=== PATIENT | female | born 1985 | race Caucasian/White ===

== ENCOUNTER 2022-09-03 14:09 | Emergency (ER) | payer OTHER, SELFPAY ==
[2022-09-03 14:29] VITALS: BP 109/66; PULSE 93; RESP 16; TEMP 36.6; O2SAT 100
--- NOTE | 2022-09-03 15:36 | ED.EAR ---
HPI - Ear Problem General Chief complaint: Ear Stated complaint: ear pain Time Seen by Provider: 09/03/22 15:25 History of Present Illness HPI Narrative: 37-year-old female presents emergency room for evaluation of bilateral ear pain. States 10 to 14 days ago was experiencing URI symptoms, sinus congestion postnasal drip or cough. States that those have resolved. 3 days ago began experiencing pain in her right ear and muffled hearing denies any drainage. Review of Systems Review of Systems: CONSTITUTIONAL: Denies fever, chills, or sweats. EYES: Denies visual changes, redness, or discharge. ENT: Bilateral ear pain CARDIOVASCULAR: Denies chest pain, palpitations, or edema. RESPIRATORY: Denies cough or dyspnea. GASTROINTESTINAL: Denies abdominal pain, nausea, vomiting, or diarrhea. GENITOURINARY: Denies dysuria or hematuria. SKIN: Denies rash or itching. MUSCULOSKELETAL: Denies back pain, joint pain, or myalgia. NEUROLOGIC: Denies headache, numbness, dizziness, or weakness. PSYCHIATRIC: Denies anxiety or depression. Exam Narrative: GENERAL: Well-appearing, well-nourished, no physical limitations, and in no acute distress. HEAD: Normocephalic, atraumatic. EYES: Conjunctivae normal, PERRLA and EOMI. ENT: External nose normal, Nares clear, no rhinorrhea or epistaxis. Mucous membranes moist. Oropharynx without tonsillar hypertrophy exudate or other lesions. External ears normal, bilateral TMs bulging with clear effusion CHEST: Clear to auscultation. No respiratory distress. No wheezes rales or rhonchi. HEART: Regular rate and rhythm. No murmur heard. Normal peripheral pulses. EXTREMITIES: Normal range of motion. No edema. No clubbing or cyanosis SKIN: Warm, dry, no rash. No noted wounds NEURO: No focal deficits. Alert and oriented x3. MAEW. CN's II-XI intact bilaterally, normal gait PSYCH: Cooperative. Normal mood and affect. Course Vital Signs Vital signs: Vital Signs Temperature 36.6 C 09/03/22 14:29 Pulse Rate 93 09/03/22 14:29 Respiratory Rate 16 09/03/22 14:29 Blood Pressure 109/66 09/03/22 14:29 Pulse Oximetry 100 09/03/22 14:29 Oxygen Delivery Room Air 09/03/22 14:29 Temperature 36.6 C 09/03/22 14:29 Pulse Rate 93 09/03/22 14:29 Respiratory Rate 16 09/03/22 14:29 Blood Pressure 109/66 09/03/22 14:29 Pulse Oximetry 100 09/03/22 14:29 Oxygen Delivery Room Air 09/03/22 14:29 Medical Decision Making Vital Signs Vital Signs: Vital Signs Temperature 36.6 C 09/03/22 14:29 Pulse Rate 93 09/03/22 14:29 Respiratory Rate 16 09/03/22 14:29 Blood Pressure 109/66 09/03/22 14:29 Pulse Oximetry 100 09/03/22 14:29 Oxygen Delivery Room Air 09/03/22 14:29 Temperature 36.6 C 09/03/22 14:29 Pulse Rate 93 09/03/22 14:29 Respiratory Rate 16 09/03/22 14:29 Blood Pressure 109/66 09/03/22 14:29 Pulse Oximetry 100 09/03/22 14:29 Oxygen Delivery Room Air 09/03/22 14:29 Discharge Plan Discharge Clinical Impression: Otalgia of both ears, Eustachian tube disorder Patient Disposition: Home, Self-Care Condition: Stable Instructions: Antibiotic Form, Earache (ED) Prescriptions: New prednisone 20 mg tablet 40 mg PO DAILY 5 Days Qty: 10 0RF fluticasone propionate [Flonase Allergy Relief] 50 mcg/actuation spray,suspension 1 spray intranasal DAILY Qty: 16 0RF Rx Instructions: administer into each nostril pseudoephedrine HCl 30 mg tablet 30 mg PO Q4-6H PRN (Reason: nasal congestion) Qty: 30 0RF Rx Instructions: DNExceed 4 doses/24h Follow-up/Referrals: PHYSICIAN,PEDIATRIC DIETICIAN [Primary Care Provider] - Time of Disposition: 15:44
== END 2022-09-03 15:55 | disposition home or self-care (01) ==
PROVIDERS: Emergency Provider Nurse Practitioner Family
DX: H92.03 Otalgia, bilateral (principal); H69.93 Unspecified Eustachian tube disorder, bilateral
CPT/HCPCS: 99283

== ENCOUNTER 2022-10-08 13:19 | Emergency (ER) | payer OTHER, SELFPAY ==
[2022-10-08 13:20] VITALS: BP 126/95; PULSE 118; RESP 16; TEMP 36.6; O2SAT 99
--- NOTE | 2022-10-08 13:31 | ED.ALLEREA ---
HPI - Allergic Reaction General Chief complaint: Allergic Reaction Stated complaint: allergic reaction Time Seen by Provider: 10/08/22 13:25 History of Present Illness HPI narrative: 37-year-old female here for evaluation of a pruritic rash to her upper extremities and trunk that she noticed about an hour prior to arrival. Patient states that she was working out in her yard today wearing short sleeves, and when she came back inside she noticed several lesions to her arms. She states a similar episode happened last summer while she was working on the yard which resolved without intervention. She is unsure what she is allergic to and denies exposures to new medications, soaps or detergents. Has not attempted any medicine prior to arrival. No difficulty breathing, wheezing, tightness in her throat, painful aspect of rash. Related Data Allergies Allergy/AdvReac Type Severity Reaction Status Date / Time Penicillins Allergy Rash Verified 10/08/22 13:22 Review of Systems Review of Systems: Gen.: Denies fevers or chills Eyes: Denies eye pain or visual change ENT: Denies congestion Respiratory: Denies shortness of breath or cough CV: Denies chest pain or palpitations GI: Denies abdominal pain nausea, emesis or diarrhea denies burning, urgency, frequency or hematuria Musculoskeletal: Denies back pain or muscle pain Neuro: Denies numbness, tingling, weakness or focal weakness Skin: Reports rash Except as documented, all other systems reviewed and negative Exam Narrative: APPEARANCE: Well appearing, no pain in distress, well-nourished. Head: Normocephalic and atraumatic. EYES: PERRLA/EOMI, conjunctivae clear NOSE: No nasal drainage EARS: External ear normal in appearance THROAT: No lesions and mucous membranes. Oropharynx is clear. Mucous membranes are moist. NECK: Supple. No adenopathy, no masses. RESPIRATORY: Airway patent, respirations nonlabored. Clear to auscultation bilaterally, no rales, rhonchi, wheezing. CARDIOVASCULAR: Regular rate and rhythm without murmurs, rubs, or gallops. ABDOMINAL: Normoactive bowel sounds. Soft, nontender, nondistended. No rebound tenderness or guarding. MUSCULOSKELETAL: Extremities are warm and well-perfused. Moves all extremities well. No edema. NEURO: Normal speech. No focal neurologic deficits. SKIN: Patient has diffuse urticarial lesions to her bilateral upper extremities and trunk sparing the areas that were covered by her tank top. Nikolsky sign is negative. PSYCHIATRIC: Normal affect/mood. Course Vital Signs Vital signs: Vital Signs Temperature 97.9 F 10/08/22 13:20 Pulse Rate 118 H 10/08/22 13:20 Respiratory Rate 16 10/08/22 13:20 Blood Pressure 126/95 H 10/08/22 13:20 Pulse Oximetry 99 10/08/22 13:20 Oxygen Delivery Room Air 10/08/22 13:20 Temperature 97.9 F 10/08/22 13:20 Pulse Rate 118 H 10/08/22 13:20 Respiratory Rate 16 10/08/22 13:20 Blood Pressure 126/95 H 10/08/22 13:20 Pulse Oximetry 99 10/08/22 13:20 Oxygen Delivery Room Air 10/08/22 13:20 MDM - Allergic Reaction MDM Narrative Medical decision making narrative: 37-year-old female who presents with pruritic rash for the past several hours consistent with urticaria. History and exam findings not consistent with dangerous etiologies of rash such as SJS/TEN, or secondary dangerous causes such as petechial rashes from thrombocytopenia or rickettsial infections. No signs of anaphylaxis. Patient was given Pepcid, Benadryl and steroids in the ED with marked improvement in her rash. She will be discharged home to follow-up with an dough mixer for further evaluation to see what she might be allergic to. Return precautions were discussed and she voiced understanding. Discharge Plan Discharge Clinical Impression: Allergic reaction Patient Disposition: Home, Self-Care Condition: Stable Instructions: Antibiotic Form, General Allergic Reaction (ED) Additional Instructions: You
[2022-10-08] MEDS: diphenhydrAMINE HCl CAP 25 MG CAPSULE 50 MG PO (14:02)
[2022-10-08] MEDS: methylPREDNISolone SOD SUCC 125 MG VIAL IM (14:02)
[2022-10-08] MEDS: FAMOTIDINE 20 MG TABLET 40 MG PO (14:02)
--- NOTE | 2022-10-08 14:45 | PC.NURSE ---
Hives gone. Denies itching.
== END 2022-10-08 15:38 | disposition home or self-care (01) ==
PROVIDERS: Emergency Provider Physician Assistant
DX: T78.40XA Allergy, unspecified, initial encounter (principal)
CPT/HCPCS: 96372; 99283; A9270; J2930

== ENCOUNTER 2023-11-24 11:33 | Emergency (ER) | payer OTHER, SELFPAY ==
[2023-11-24 11:42] VITALS: BP 102/62; PULSE 118; RESP 16; TEMP 36.7; O2SAT 99
--- NOTE | 2023-11-24 12:01 | ED.URI ---
HPI - URI/Sore Throat General Chief Complaint: Upper Respiratory Infection Stated Complaint: headache,lymph nodes swollen Time Seen by Provider: 11/24/23 11:51 Source: patient and RN notes reviewed Mode of arrival: ambulatory Limitations: no limitations History of Present Illness HPI Narrative: Patient presents today complaining of an 8 day history of headache, sore throat, and swelling to the left side of her neck. Denies fever or cough. Sore throat pain increases with swallowing to 10/10. She has tried DayQuil, NyQuil, and Chloraseptic without much relief. Denies shortness of breath or difficulty swallowing. Related Data Allergies Allergy/AdvReac Type Severity Reaction Status Date / Time Penicillins AdvReac Mild Rash Verified 11/24/23 11:36 Review of Systems Review of Systems: CONSTITUTIONAL: Denies body aches, fever, chills, or sweats. EYES: Denies visual changes, redness, or discharge. ENT: Denies rhinorrhea, congestion, or otalgia.+ sore throat, swollen lymph node CARDIOVASCULAR: Denies chest pain, palpitations, or edema. RESPIRATORY: Denies cough or dyspnea. GASTROINTESTINAL: Denies abdominal pain, nausea, vomiting, or diarrhea. GENITOURINARY: Denies dysuria or hematuria. SKIN: Denies rash, itching, or wounds. MUSCULOSKELETAL: Denies back pain, joint pain, or myalgia. NEUROLOGIC: Denies numbness, tingling, or weakness.+ headache PSYCH: Denies depression or anxiety. PMFSH Comments At time of signature, I have reviewed and agree with nursing past medical, surgical, social and family history unless otherwise noted. Please see nursing chart for further information. There is no relevant family history pertinent to the presenting complaint Exam Narrative: GENERAL: Mildly ill-appearing, well-nourished, and in no acute distress. HEAD: Normocephalic, atraumatic. EYES: EOMI. No redness or drainage. Conjunctivae normal. ENT: Mucous membranes pink and moist. Nares clear. No rhinorrhea. TMs normal bilaterally. Throat normal. Uvula midline. NECK: Normal AROM. Supple. Swollen and tender lymph node to the left anterior cervical chain CHEST: No respiratory distress. Clear to auscultation. HEART: Regular rate and rhythm. No murmur appreciated. EXTREMITIES: Normal range of motion. No edema. SKIN: Warm, dry, no rash. Capillary refill normal. Normal skin turgor. NEURO: No focal deficits. Alert and oriented x3. Gait steady. PSYCH: Normal affect. No signs of depression or anxiety. Course Course Level of Care: Express Care Visit Vital Signs Vital signs: Vital Signs Temperature 98.1 F 11/24/23 11:42 Pulse Rate 118 H 11/24/23 11:42 Respiratory Rate 16 11/24/23 11:42 Blood Pressure 102/62 11/24/23 11:42 Pulse Oximetry 99 11/24/23 11:42 Oxygen Delivery Room Air 11/24/23 11:42 Temperature 98.1 F 11/24/23 11:42 Pulse Rate 118 H 11/24/23 11:42 Respiratory Rate 16 11/24/23 11:42 Blood Pressure 102/62 11/24/23 11:42 Pulse Oximetry 99 11/24/23 11:42 Oxygen Delivery Room Air 11/24/23 11:42 Reviewed MDM - URI/Sore Throat MDM Narrative Medical decision making narrative: Rapid strep positive. Prescription for Keflex sent to pharmacy. Anticipatory guidance given. Differential Diagnosis Differential diagnosis: Likely upper respiratory infection, otitis media, viral infection, pharyngitis and other (Strep throat, lymphadenopathy) Lab Data Attestation: I reviewed the patient's lab results. Labs: Strep Screen Positive Group A Strep *(Reference Range: Negative)* Critical Care Time Critical Care Time Critical Care Time: No Discharge Plan Discharge Clinical Impression: Strep throat Patient Disposition: Home, Self-Care Condition: Stable Instructions: Antibiotic Form, Strep Throat (DC) Additional Instructions: You have tested positive for strep throat today. Please take the Keflex as prescribe
== END 2023-11-24 12:04 | disposition home or self-care (01) ==
PROVIDERS: Emergency Provider Nurse Practitioner; PCP Family Medicine
DX: J02.0 Streptococcal pharyngitis (principal); K21.9 Gastro-esophageal reflux disease without esophagitis; Z86.16 Personal history of COVID-19
CPT/HCPCS: 87880; 99213; G0463

== ENCOUNTER 2024-11-05 12:54 | Outpatient (CLI) | payer OTHER, SELFPAY ==
--- NOTE | ~2024-11-05 | US_ITS ---
EXAMINATION: US FNA w image guidance DATE: 11/05/2024 14:10 INDICATION: Left parotid mass. TECHNIQUE: The procedure and its benefits and risks were discussed with the patient. Risks specifically discusse d included bleeding. The patient verbalized understanding of the risks and agreed to proceed. The nec k was prepped and draped in the usual sterile manner. 1% lidocaine was used for local anesthesia. 6 passes were made with a 25G needle into the lesion under ultrasound guidance. There were no immedia te complications. FINDINGS: Grayscale ultrasound images demonstrate needles advanced into a 2.9 x 2.3 x 2.3 cm hypoechoic mass in left parotid gland for biopsy. IMPRESSION: 1. Ultrasound-guided fine needle aspiration of a left parotid mass. Reviewed, dictated and finalized at location A. [facility]
--- OUTSIDE RECORDS SUMMARY | 2024-11-05 14:11 | XMS_ITS | Data Portability ---
Author Organization [facility] Impraise, Main Office Address [address] [place] [address] Care Team Providers Care Broadcast Traffic Coordinator Name Role Phone CHASE COONEY Primary Care Provider Unavailabl e Assessment Encounter Date Assessment Date Assessment LastModified by Organization Details LastModified Time 11/28/2023 11/28/2023 Flu Shot: decline COVID Vaccines: declines Eye exam: up to date Dental exam: due, recommended WWE: declines [email or web address] Not available 11/28/2023 11:27:41 Plan of Treatment Reminders Order Date Submit Date Provider Last Modified By Organization Details Last Modified Time Details Appointments None recorded. Lab ARABELLA (antinucle ar antibodies ) panel, serum [address] [facility] (Lab), [address] [place], [address], 4 21:23:12 lipid panel, serum [address] [facility] (Lab), [address] [place], [address], 4 20:02:21 CMP, serum or plasma [address] [facility] (Lab), [address] [place], [address], 4 20:02:26 glycohemog lobin, total, blood [address] [facility] (Lab), [address] [place], [address], 4 20:58:24 CBC w/ auto diff [address] [facility] (Lab), [address] [place], [address], 4 19:32:54 TSH, serum or plasma [address] [facility] (Lab), [address] [place], [address], 4 20:24:06 Referral senior mobile application developer & immunologi st referral - Please call patient to schedule an appointmen t. Thank you. 2023 024 [email or web address] Matt Ac MD, [address] [address], [place], [address], 4 09:42:[address] referral - Please call patient to schedule an appointmen t. Thank you. 2023 024 [email or web address] Karin Waters Pmhnp, [address] [facility] [address] , [place], [address], 4 07:46:02 dermatolog ist referral 2023 024 [email or web address] Kya Marina MD (Dermatology) , [address] [facility] , [facility], [place], [address], 4 09:07:20 Procedures fine needle aspiration , ultrasound guided, neck mass (PROC) 2024 025 [facility], [address], [place], [address], 5 17:01:00 Surgeries None recorded. Imaging CT, head + neck, w/ contrast - *Please call pt to schedule* [email or web address] [place] [address] (Radiology), [address] [place], [address], 4 09:34:32 Medication Orders levofloxac in 500 mg tablet 2024 025 [facility] [id number] [facility], [address] [facility], [place], [address], 5 16:39:50 omalizumab 150 mg/mL subcutaneo us auto-injec tor 2023 024 [email or web address], [address] [facility], [address], [place], [address], 4 16:44:04 hydroxyzin e HCl 10 mg tablet 2023 024 [email or web address] [facility] [id number] [facility], [address] [facility], [place], [address], 4 15:47:21 omalizumab 150 mg/mL subcutaneo us auto-injec tor 2023 024 [facility] [id number] [facility], [address] [place], [address], 4 16:44:04 Nurtec ODT 75 mg disintegra ting tablet 2023 024 [email or web address] [facility] [id number] [facility], [address] [facility], [place], [address], 4 15:47:23 Patient TargetsNo targets recorded. Patient InstructionsNo instructions recorded. Reason for Referral Paint Mixer Hand Referral for S olar urticaria Referring Physician: Chase Cooney Family Medicine, Encounter Date: 11/28/2023 Psychiatrist Referral for Un able to concentrate Please call patient to schedule an appointment. Thank you. Referring Physician: Family Sanjuanita Medicine, Encounter Date: 04/01/2024 Lumber Piler Operator & Patient Service Associate Ref erral for Chronic idiopathic urticaria Please call patient to schedule an appointment. Thank you. Referring Physician: Chase Cooney, Family Medicine, Encounter Date: 04/29/2024 Results Created Date Observation Date Name Description Value Unit Range Abnormal Flag Note LastModifiedBy Organization Detail LastModifiedTime 11/28/19 24 11/28/2023 CBC/C OMPLE TE BLD COUNT W/DIF F white blood cells 9.6 x10'3 /uL 4.2-10 .8 Not Available [facility] (Lab) [address] [place], [address], 11/28/2023 19:32:53 11/28/19 24 11/28/2023 CBC/C OMPLE TE BLD COUNT W/DIF F red blood cells 4.59 x10'6 /uL 3.80-5 .20 Not Available [facility] (Lab) [address] [place], [address], 11/28/2023 19:32:53 11/28/19 24 11/28/2023 CBC/C OMPLE TE BLD COUNT W/DIF F hemoglobin 13.4 g/dL 12.0-1 5.6 Not Available [facility] (Lab) [address] [place], [address], 11/28/2023 19:32:53 11/28/19 24 11/28/2023 CBC/C OMPLE TE BLD COUNT W/DIF F hematocrit 40.2 % 35.7-4 5.7 Not Available [facility] (Lab) [address] [place], [address], 11/28/2023 19:32:53 11/28/19 24 11/28/2023 CBC/C OMPLE TE BLD COUNT W/DIF F mean red cell volume 87.6 fL 82.0-9 9.0 Not Available [facility] (Lab) [address] [place], [address], 11/28/2023 19:32:53 11/28/19 24 11/28/2023 CBC/C OMPLE TE BLD COUNT W/DIF F mean red cell hemoglobin 29.2 pg 27.0-3 3.0 Not Available [facility] (Lab) [address] [place], [address], 11/28/2023 19:32:53 11/28/19 24 11/28/2023 CBC/C OMPLE TE BLD COUNT W/DIF F mean RBC HGB concentratio n 33.3 g/dL 31.0-3 6.0 Not Available [facility] (Lab) [address] [place], [address], 11/28/2023 19:32:53 11/28/19 24 11/28/2023 CBC/C OMPLE TE BLD COUNT W/DIF F red cell distribution width 13.1 % 11.8-1 5.5 Not Available [facility] (Lab) [address] [place], [address], 11/28/2023 19:32:53 11/28/19 24 11/28/2023 CBC/C OMPLE TE BLD COUNT W/DIF F platelets 474 x10'3 /uL 150-40 0 high Not Available [facility] (Lab) [address] [place], [address], 11/28/2023 19:32:53 11/28/19 24 11/28/2023 CBC/C OMPLE TE BLD COUNT W/DIF F mean platelet volume 10.9 fL 9.0-12 .4 Not Available [facility] (Lab) [address] [place], [address], 11/28/2023 19:32:53 11/28/19 24 11/28/2023 CBC/C OMPLE TE BLD COUNT W/DIF F neutrophils 56.0 % 39.0-7 2.0 Not Available [facility] (Lab) [address] [place], [address], 11/28/2023 19:32:53 11/28/19 24 11/28/2023 CBC/C OMPLE TE BLD COUNT W/DIF F lymphocytes 31.6 % 16.0-4 7.0 Not Available [facility] (Lab) [address] [place], [address], 11/28/2023 19:32:53 11/28/19 24 11/28/2023 CBC/C OMPLE TE BLD COUNT W/DIF F monocytes 5.4 % 5.0-12 .0 Not Available [facility] (Lab) [address] [place], [address], 11/28/2023 19:32:53 11/28/19 24 11/28/2023 CBC/C OMPLE TE BLD COUNT W/DIF F eosinophils 6.1 % 1.0-7. 0 Not Available [facility] (Lab) [address] [place], [address], 11/28/2023 19:32:53 11/28/19 24 11/28/2023 CBC/C OMPLE TE BLD COUNT W/DIF F basophils 0.6 % 0.0-2. 0 Not Available [facility] (Lab) [address] [place], [address], 11/28/2023 19:32:53 11/28/19 24 11/28/2023 CBC/C OMPLE TE BLD COUNT W/DIF F immature granulocytes 0.3 % 0.00-0 .50 Not Available [facility] (Lab) [address] [place], [address], 11/28/2023 19:32:53 11/28/19 24 11/28/2023 CBC/C OMPLE TE BLD COUNT W/DIF F neutrophils, absolute count 5.35 x10'3 /uL 1.5-8. 0 Not Available [facility] (Lab) [address] [place], [address], 11/28/2023 19:32:53 11/28/19 24 11/28/2023 CBC/C OMPLE TE BLD COUNT W/DIF F lymphocytes, absolute count 3.02 x10'3 /uL 1.07-3 .43 Not Available [facility] (Lab) [address] [place], [address], 11/28/2023 19:32:53 11/28/19 24 11/28/2023 CBC/C OMPLE TE BLD COUNT W/DIF F monocytes, absolute count 0.52 x10'3 /uL 0.29-0 .99 Not Available [facility] (Lab) [address] [place], [address], 11/28/2023 19:32:53 11/28/19 24 11/28/2023 CBC/C OMPLE TE BLD COUNT W/DIF F eosinophils, absolute count 0.58 x10'3 /uL 0.02-0 .53 high Not Available [facility] (Lab) [address] [place], [address], 11/28/2023 19:32:53 11/28/19 24 11/28/2023 CBC/C OMPLE TE BLD COUNT W/DIF F basophils, absolute count 0.06 x10'3 /uL 0.01-0 .08 Not Available [facility] (Lab) [address] [place], [address], 11/28/2023 19:32:53 11/28/19 24 11/28/2023 CBC/C OMPLE TE BLD COUNT W/DIF F immature granulocytes ,absolute 0.03 x10'3 /uL 0.00-0 .05 Not Available [facility] (Lab) [address] [place], [address], 11/28/2023 19:32:53 11/28/19 24 11/28/2023 CBC/C OMPLE TE BLD COUNT W/DIF F nucleated red blood cells 0.0 % -0 Not Available [facility] (Lab) [address] [place], [address], 11/28/2023 19:32:53 11/28/19 24 11/28/2023 CBC/C OMPLE TE BLD COUNT W/DIF F NRBC# 0.00 x10'3 /uL Not Available [facility] (Lab) [address] [place], [address], 11/28/2023 19:32:53 11/28/19 24 11/28/2023 LIPID PANEL cholesterol 180 mg/dL 140-19 9 NIH NOEMI NSUS RECOM MENDA TION FOR VASILE STERO L: ADULT CHILD LOW RISK: <200 <170 BORDE RLINE : <200- 239 ----- HIGH RISK: >240 >200 Not Available [facility] (Lab) [address] [place], [address], 11/28/2023 20:02:21 11/28/19 24 11/28/2023 LIPID PANEL triglyceride s 100 mg/dL 0-150 NIH NOEMI NSUS REPOR T RECOM MENDA TION FOR TRIGL YCERI JUDY: ADULT CHILD LOW RISK: <150 ----- BODER LINE: 150-1 99 ----- HIGH RISK: >200 ----- Not Available [facility] (Lab) [address] [place], [address], 11/28/2023 20:02:21 11/28/19 24 11/28/2023 LIPID PANEL HDL cholesterol 36 mg/dL 40- low Not Available [facility] (Lab) [address] [place], [address], 11/28/2023 20:02:21 11/28/1911/28/2023 LIPID PANEL LDL cholesterol, calculated 124 mg/dL 0-130 NIH NOEMI NSUS REPOR T RECOM MENDA TIONS FOR LDL: ADULT CHILD LOW RISK <130 <110 (OPTI MAL LDL) <100 ----- BORDE RLINE : 130-1 59 ----- HIGH RISK: >160 >130 A TRIGL YCERI DE RESUL T >400 INVAL IDATE S THE CALCU LATIO N FOR LDL FRACT IONAT ION - THE LDL RESUL T WILL NOT BE REPOR LUCIANA. Not Available [facility] (Lab) [address] [place], [address], 11/28/2023 20:02:21 11/28/19 24 11/28/2023 COMPR EHENS SENAIT METAB OLIC PANEL sodium 141 mmol/ L 137-14 5 Not Available [facility] (Lab) [address] [place], [address], 11/28/2023 20:02:26 11/28/19 24 11/28/2023 COMPR EHENS SENAIT METAB OLIC PANEL potassium 4.6 mmol/ L 3.5-5. 1 Not Available [facility] (Lab) [address] [place], [address], 11/28/2023 20:02:26 11/28/19 24 11/28/2023 COMPR EHENS SENAIT METAB OLIC PANEL chloride 106 mmol/ L 98-107 Not Available [facility] (Lab) [address] [place], [address], 11/28/2023 20:02:26 11/28/19 24 11/28/2023 COMPR EHENS SENAIT METAB OLIC PANEL carbon dioxide 29 mmol/ L 22-30 Not Available [facility] (Lab) [address] [place], [address], 11/28/2023 20:02:26 11/28/19 24 11/28/2023 COMPR EHENS SENAIT METAB OLIC PANEL anion gap 10.6 mmol/ L 14-22 low Not Available [facility] (Lab) [address] [place], [address], 11/28/2023 20:02:26 11/28/19 24 11/28/2023 COMPR EHENS SENAIT METAB OLIC PANEL glucose 84 mg/dL 70-99 Not Available [facility] (Lab) [address] [place], [address], 11/28/2023 20:02:26 11/28/19 24 11/28/2023 COMPR EHENS SENAIT METAB OLIC PANEL BUN 10 mg/dL 8-19 Not Available [facility] (Lab) [address] [place], [address], 11/28/2023 20:02:26 11/28/19 24 11/28/2023 COMPR EHENS SENAIT METAB OLIC PANEL creatinine 0.75 mg/dL 0.66-1 .25 Not Available [facility] (Lab) [address] [place], [address], 11/28/2023 20:02:26 11/28/19 24 11/28/2023 COMPR EHENS SENAIT METAB OLIC PANEL GFR >60 Refer ence Range : Elmer ge GFR Healt hy Adult : >60 mL/mi n/1.7 3 m2 Chron ic Kidne y Disea se: 15-60 mL/mi n/1.7 3 m2 Kidne y Failu re: <15/m L/min /1.73 m2 www.n iddk. nih.g ov The MDRD study equat ion has not been valid ated in child sav <18 years of age; pregn ant women ; the elder ly >85 years of age; or in some racia l or ethni c subgr oups, such as Hisma nics. Outsi de the valid ated frederick eters , estim ated GFR is less accur ate, requi ring clini kaylie judgm ent on a case- by-ca se basis . Clini kaylie inter preta tion for other races and ages must be made by the clini fany. The MDRD study equat ion has not been valid ated for the evalu ation of serum creat inine relat ed to nutri chayo l statu s or medic ation usage . For perso ns <18 years of age, a pedia tric GFR calcu lator is avail able on the F websi te: https ://jan scanlon.[address].o rg/pr ofess ional s/kdo qi/gf r_cal culat or Not Available [facility] (Lab) [address] [place], [address], 11/28/2023 20:02:26 11/28/19 24 11/28/2023 COMPR EHENS SENAIT METAB OLIC PANEL alkaline phosphatase 85 U/L 38-126 Not Available [facility] (Lab) [address] [place], [address], 11/28/2023 20:02:26 11/28/19 24 11/28/2023 COMPR EHENS SENAIT METAB OLIC PANEL alanine aminotransfe rase 26 U/L 0-35 Not Available [facility] (Lab) [address] [place], [address], 11/28/2023 20:02:26 11/28/19 24 11/28/2023 COMPR EHENS SENAIT METAB OLIC PANEL aspartate aminotransfe rase 20 U/L 15-37 Not Available [facility] (Lab) [address] [place], [address], 11/28/2023 20:02:26 11/28/19 24 11/28/2023 COMPR EHENS SENAIT METAB OLIC PANEL bilirubin, total 0.40 mg/dL 0.20-1 .30 Not Available [facility] (Lab) [address] [place], [address], 11/28/2023 20:02:26 11/28/19 24 11/28/2023 COMPR EHENS SENAIT METAB OLIC PANEL calcium 9.3 mg/dL 8.4-10 .2 Not Available [facility] (Lab) [address] [place], [address], 11/28/2023 20:02:26 11/28/19 24 11/28/2023 COMPR EHENS SENAIT METAB OLIC PANEL total protein 7.0 g/dL 6.3-8. 2 Not Available [facility] (Lab) [address] [place], [address], 11/28/2023 20:02:26 11/28/19 24 11/28/2023 COMPR EHENS SENAIT METAB OLIC PANEL albumin 3.9 g/dL 3.4-5. 0 Not Available [facility] (Lab) [address] [place], [address], 11/28/2023 20:02:26 11/28/19 24 11/28/2023 COMPR EHENS SENAIT METAB OLIC PANEL globulin 3.1 g/dL 2.6-4. 2 Not Available [facility] (Lab) [address] [place], [address], 11/28/2023 20:02:26 11/28/19 24 11/28/2023 COMPR EHENS SENAIT METAB OLIC PANEL A/G ratio 1.3 ratio 1.0-2. 0 Not Available [facility] (Lab) [address] [place], [address], 11/28/2023 20:02:26 11/28/19 24 11/28/2023 TSH W/REF MARIBETH FT4 TSH with reflex free T4 1.600 uIU/m L 0.465- 4.680 Not Available [facility] (Lab) [address] [place], [address], 11/28/2023 20:24:06 11/28/19 24 11/28/2023 HEMOG LOBIN A1C HA1C 5.4 % 4.0-6. 0 Diabe rojelio Scree zoey Crite delia: <5.7% Consi stent with absen ce of diabe rojelio 5.7-6 .4% Consi stent with incre ased risk for diabe rojelio (pred iabet es) >OR=6 .5% Consi stent with diabe rojelio REFER ENCE: Diabe rojelio Care 2016, 39(Levin ppl.1 ):s13 -s22 Not Available [facility] (Lab) [address] [facility] [place], [address], 11/28/2023 20:58:24 08/29/20 24 08/29/2024 CT, neck, soft tissu e, w/ contr ast No observ ation record ed. [facility] [address] [place], [address], 09/04/2024 12:20:29 Result Notes None recorded. Problems Name Problem SNOMED Code Status Onset Date Resolution Date Notes Provider Name and Address Organization Details Recorded Time Anxiety 22810789 Active 2022 Medina Doyle NP [address], [place], [address], [employer] 3 11:12:24 Migraine 21806676 Active 2022 Medina Doyle NP [address], [address], [place], [address], [employer] 3 11:14:56 Gastroesoph ageal reflux disease 435928870 Active 2022 Medina Doyle NP [address], [place], [address], [employer] 3 11:20:08 Abnormal cervical Papanicolao u smear 989696802 Active 2022 Medina Doyle NP [address], [place], [address], [employer] 3 11:24:38 Skin lesion 02601184 Active 2022 Medina Doyle NP [address], [place], [address], [employer] 3 11:27:48 Hyperlipide jorge a 69715894 Active 2022 Medina Doyle NP [address], [place], [address], [employer] 3 11:29:48 Vitamin D deficiency 49362266 Active 2022 Medina Doyle NP [address], [place], [address], [employer] 3 11:29:55 Hearing loss 23326280 Active 2022 Medina Doyle NP [address], [place], [address], [employer] 3 11:34:07 Solar urticaria 07210751 Active 2023 DORIAN Gann [address], [address], [place], [address], [employer] 4 10:55:36 Hypercholes terolemia 05895145 Active 2023 DORIAN Gann [address], [address], [place], [address], [employer] 4 11:21:36 Forgetful 43731558 Active 2023 DORIAN Gann [address], [place], [address], [employer] 4 16:14:02 Unable to concentrate 22007694 Active 2023 DORIAN Gann [address], [place], [address], [employer] 4 16:14:36 Word finding difficulty 343362157 Active 2023 DORIAN Gann [address], [place], [address], [employer] 4 15:00:32 Chronic idiopathic urticaria 542939044 Active 2023 DORIAN Gann [address], [place], [address], [employer] [facility] 4 11:06:07 Cervical lymphadenop athy 100258196 Active 2023 DORIAN Gann [address] [facility], [place], [address], [facility] [employer] [facility] 4 16:53:29 Mass of parotid gland 768865493 Active 2024 DORIAN Gann [address] [facility], [address], [place], [address], [facility] [employer] [facility] 5 11:28:20 Mass of left parotid gland 1801763005952 9103 Active 2024 Leah Orlando RN null, [facility] [employer] [facility] 5 16:35:30 Problem Notes None recorded. Procedures Surgical History Date Name Laterality Status Provider Name and Address Organization Details Recorded Time tonsillectomy and adenoidectomy completed Medina Porter RN [facility] [employer] [facility] 01/24/2023 10:53:36 Myringotomy Tube Placement completed Leah Orlando RN [facility] [employer] [facility] 09/18/2024 16:10:44 Tubal Ligation completed Medina Porter RN [facility] [employer] [facility] 01/24/2023 10:54:08 Imaging Results Imaging Date Name Status LastModified by Organiz ation Details LastModified Time 08/29/2024 CT, neck, soft tissue, w/ contrast completed [facility] [address] [place], [address], 09/04/2024 12:20:29 Procedure Notes None recorded. Medical Equipment None Reported. Allergies Allergen ID Allergen Name Allergen Category Reaction Reaction Severity Criticality Documentation Date Start Date Code Code System Note Provider Name and Address Organization Details Recorded Time 15128 Product containin g penicilli n (product) medicatio n Not available Not available Not available 01/24/2023 35586 8001 SNOMED LASHAWN Feng, [facility] 10:45:35 Medications Name Sig Start Date Stop Date Status Note LastModified by Organization Details LastModified Time bupropion HCl SR 150 mg tablet,12 hr sustained-r elease TAKE 1 TABLET BY MOUTH TWICE A DAY 11/27 completed Not Available Not Available Not Available trazodone 50 mg tablet TAKE 1 TABLET BY MOUTH EVERY DAY AT BEDTIME NEEDED FOR 30 DAYS 07/23 completed Not Available Not Available Not Available ibuprofen 800 mg tablet TAKE 1 TABLET BY MOUTH EVERY 8 HOURS 11/27 completed Not Available Not Available Not Available prednisone 20 mg tablet TAKE 2 TABLETS BY MOUTH DAILY 01/24 completed Not Available Not Available Not Available sumatriptan 50 mg tablet PLEASE SEE ATTACHED FOR DETAILED DIRECTION S 11/27 completed Not Available Not Available Not Available butalbital- acetaminoph en-caffeine 50 mg-325 mg-40 mg tablet TAKE 1 TABLET BY MOUTH 2 TIMES DAILY NEEDED FOR HEADACHES OR MIGRAINE. 01/24 completed Not Available Not Available Not Available alprazolam 0.25 mg tablet TAKE 1 TABLET BY MOUTH NIGHTLY NEEDED FOR ANXIETY. 01/24 completed Not Available Not Available Not Available famotidine 20 mg tablet TAKE 2 TABLETS BY MOUTH DAILY 11/27 completed Not Available Not Available Not Available trazodone 100 mg tablet TAKE 1 TABLET BY MOUTH EVERY DAY AT BEDTIME NEEDED FOR 30 DAYS active Not Available Not Available No t Available cephalexin 500 mg capsule 04/01 completed Not Available Not Available Not Available levofloxaci n 500 mg tablet TAKE 1 TABLET EVERY 24 HOURS BY ORAL ROUTE active Not Available Not Available No t Available hydroxyzine HCl 10 mg tablet Take one tablet by mouth up to three times daily as needed for itching 04/01 completed Not Available Not Available Not Available fluticasone propionate 50 mcg/actuati on nasal spray,suspe nsion INSTILL 1 SPRAY INTO EACH NOSTRIL EVERY DAY 11/27 completed Not Available Not Available Not Available hydroxyzine pamoate 25 mg capsule TAKE 2 CAPSULE BY MOUTH THREE TIMES A DAY NEEDED FOR 30 DAYS 07/23 completed Not Available Not Available Not Available escitalopra m 10 mg tablet TAKE 1 TABLET BY MOUTH EVERY DAY AT BEDTIME FOR 30 DAYS 04/29 completed Not Available Not Available Not Available vilazodone 40 mg tablet 09/18 completed Not Available Not Available Not Available vilazodone 20 mg tablet TAKE 1 TABLET BY MOUTH EVERY DAY IN THE MORNING 07/23 completed Not Available Not Available Not Available vilazodone 10 mg tablet PLEASE SEE ATTACHED FOR DETAILED DIRECTION S 07/23 completed Not Available Not Available [facility] Available [facility] mg disintegrat ing tablet Take 1 tablet every day by oral route as needed for 30 days, for migraine. 04/01 completed Not Available Not Available Not Available omalizumab 150 mg/mL subcutaneou s auto-inject or Inject 1 mL every 4 weeks by subcutane ous route as directed for 28 days, for hives. 07/23 completed Not Available Not Available Not Available Vitals Date Recorded Body height Body mass index (BMI) Body weight Body temperature Heart rate Respiratory rate Oxygen saturation Oxygen saturation in Arterial blood by Pulse oximetry Pain severity - 0-10 verbal numeric rating [Score] - Reported Systolic blood pressure Diastolic blood pressure Provider Name and Address Organization Details Last Updated DateTime 4 165.1 cm 25.3 kg/m2 99657.0 4 g 97.2 [degF] 99 /min 20 /min 98 % 98 % 0 128 mm[Hg] 88 mm[Hg] Medina Porter RN [facility] [employer] [facility] 4 10:38:55 Date Recorded Body height Body mass index (BMI) Body weight Body temperature Heart rate Respiratory rate Oxygen saturation Oxygen saturation in Arterial blood by Pulse oximetry Pain severity - 0-10 verbal numeric rating [Score] - Reported Systolic blood pressure Diastolic blood pressure Provider Name and Address Organization Details Last Updated DateTime 4 165.1 cm 25.5 kg/m2 46233.0 3 g 98.1 [degF] 89 /min 24 /min 99 % 99 % 0 106 mm[Hg] 78 mm[Hg] Medina Porter RN [facility] [employer] [facility] 4 15:50:19 Date Recorded Body height Body mass index (BMI) Body weight Body temperature Heart rate Respiratory rate Oxygen saturation Oxygen saturation in Arterial blood by Pulse oximetry Pain severity - 0-10 verbal numeric rating [Score] - Reported Systolic blood pressure Diastolic blood pressure Provider Name and Address Organization Details Last Updated DateTime 4 165.1 cm 26 kg/m2 95624.4 1 g 98 [degF] 113 /min 20 /min 98 % 98 % 0 120 mm[Hg] 82 mm[Hg] Medina Porter RN [facility] [employer] [facility] 10:23:34 Date Recorded Body height Body mass index (BMI) Body weight Body temperature Heart rate Respiratory rate Oxygen saturation Oxygen saturation in Arterial blood by Pulse oximetry Pain severity - 0-10 verbal numeric rating [Score] - Reported Systolic blood pressure Diastolic blood pressure Provider Name and Address Organization Details Last Updated DateTime 165.1 cm 26 kg/m2 38405.8 6 g 97.2 [degF] 86 /min 20 /min 98 % 98 % 9 98 mm[Hg] 64 mm[Hg] Medina Porter RN [facility] [employer] 16:46:47 Date Recorded Body height Body mass index (BMI) Body weight Body temperature Provider Name and Address Organization Details Last Updated DateTime 09/18/2024 165.1 cm 26.3 kg/m2 76085.59 g 97.9 [degF] Leah Orlando RN [facility] Impraise 09/18/2024 16:12:52 Social History Question Answer Notes LastModified by Organization Details LastModified Time Tobacco Smoking Status Current Every Day Smoker Medina Porter RN [facility] Impraise 01/24/2023 10:52:21 Do You Have An Advance Directive? No Information not available 11/28/2023 What Is Your Level Of Alcohol Consumption? None Information not available 01/24/2023 What Is Your Level Of Caffeine Consumption? Moderate Coffee, Tea Information not available 01/24/2023 In The 14 Days Before Symptom Onset, Have You Had Close Contact With A Laboratory-conf irmed COVID-19 While That Case Was Ill? No Information not available 01/24/2023 In The 14 Days Before Symptom Onset, Have You Had Close Contact With A Person Who Is Under Investigation For COVID-19 While That Person Was Ill? No Information not available 01/24/2023 Are You Currently Employed? No Information not available 01/24/2023 What Type Of Diet Are You Following? REGULAR Information not available 11/28/2023 What Is The Highest Grade Or Level Of School You Have Completed Or The Highest Degree You Have Received? [id number] Information not available 01/24/2023 Have There Been Any Changes To Your Family Or Social Situation? No Information not available 01/24/2023 Are There Any Guns Present In Your Home? No Information not available 01/24/2023 Do You Use Insect Repellent Routinely? Yes Information not available 01/24/2023 Where Do You Live? [facility] Information not available 01/24/2023 Do You Have A Medical Power Of Assisted Living Coordinator? No Information not available 11/28/2023 How Many Children Do You Have? 2 Information not available 01/24/2023 Do You Have Any Pets? Yes Information not available 01/24/2023 What Is Your Relationship Status? Single Information not available 01/24/2023 Do You Use Your Seat Belt Or Car Seat Routinely? Yes Information not available 01/24/2023 Do You Have Smoke And Carbon Monoxide Detectors In Your Home? Yes Information not available 01/24/2023 At What Age Did You Start Smoking Tobacco? 18 Information not available 01/24/2023 Are There Any Smokers In Your House? Yes Information not available 01/24/2023 How Much Tobacco Do You Smoke? No 10 Cigerettes A Day Information not available 07/23/2024 Do You Participate In Social Media? Yes Information not available 01/24/2023 Do You Feel Stressed (tense, Restless, Nervous, Or Anxious, Or Unable To Sleep At Night)? [id number] Information not available 01/24/2023 Do You Use Any Illicit Or Recreational Drugs? No Information not available 01/24/2023 Do You Use Sunscreen Routinely? Yes Information not available 01/24/2023 Have You Recently Traveled Abroad? No Information not available 01/24/2023 Sex: Female Functional Status Question Answer Note LastModified by Organization D etails LastModified Time What is your exercise level? None Information not available 11/28/2023 Mental Status None recorded. Family History Relationship Description Onset Age of this Age Resolved Age Notes LastModified by Organization Details LastModified Time Father No current problems or disability [email or web address] Not available 16:06:27 Mother No current problems or disability [email or web address] Not available 16:06:27 Mother Anxiety disorder [email or web address] Not available 2022 11:07:38 Brother Anxiety disorder [email or web address] Not available 2022 11:07:38 Notes:NO ENT Medical History Condition Response ALLERGIES/HAYFEVER Y HEADACHES/MIGRAINES Y ENT Y ANXIETY DISORDER Y DEPRESSION (INCLUDING POST ) Y HEARTBURN / REFLUX Y Gynecological History Statement/Question Response Flow Heavy Date of LMP 07/02/2024 STIs/STDs N Dislike of Light during Menstrual Headac he N Do your menstrual headaches get severe N Duration of Flow (days) 8 Most Recent Mammogram Age at Menarche 15 Breast Problems none Date of Last Colonoscopy Frequency of Cycle (Q days) Most Recent Bone Density Menses Monthly N Date of Last Pap Smear Discharge none Obstetrics History GPAL:G 0 P 0 0 0 0 Past Encounters Encounter ID Performer Location Encounter Start Date Encounter Closed Date Diagnosis/Indication Diagnosis SNOMED-CT Code Diagnosis ICD10 Code Diagnosis Note [id number] Medina Doyle NP [facility] [address] [address] 01/24/2023 10:39:28 01/24/2023 11:43:48 Anxiety 27177494 F41.9 Starting on wellbutrin SR 150 mg po bid. Tobacco user 856338761 Z 72.0 Wellbutrin SR 150 mg po bid Migraine 23849668 G43.90 9 Stop fioricet months ago. Start on sumatripta n prn. Pt declined offer for preventive topiramate , amitriptyl ine, qulipta. Gastroesop hageal reflux disease 148366722 K21.9 pepcid 20 mg 2 tab po daily Abnormal c ervical Papanicolaou smear 311074179 R87.619 Pt denies further WWE at this time. 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 Pt decision is no WWE/Pap. 01/24/23 Skin lesion 44998002 L98 .9 States when in sunlight, skin goodwin. Referral to derm made. Anemia screening 07 Z13.0 Diabetes m ellitus screening 967425310 Z13.1 Thyroid di sorder screening 975334796 Z13.29 Hyperlipidemia 00868410 E78.5 Vitamin D deficiency 347 56595 E55.9 Hearing loss 78585298 H9 1.93 referring to audiologis t. [id number] Billie Lawson [address] [address] 02/02/2023 10:28:01 02/02/2023 10:54:35 [id number] DORIAN Gann [address] [address] 11/28/2023 10:24:26 11/28/2023 12:48:42 Migraine 89189550 G43.909 Discussed Propanolol as daily prophylact ic, patient will consider and let us know Solar urticaria 16999961 L56.3 Hypercholesterolemia 136 09804 E78.5 Anxiety 08367446 F41.9 [id number] DORIAN Gann [address] [address] 04/01/2024 15:38:14 04/01/2024 16:38:42 Unable to concentrate 90762205 R41.170 [id number] Katia Jc NP [facility] [address] [address] 04/15/2024 16:46:37 04/16/2024 14:24:53 [id number] Katia Jc NP [facility] [address] [address] 04/28/2024 13:34:56 04/28/2024 15:02:08 [id number] Chase Cooney ALARM MECHANIC [address] [address] 04/29/2024 10:14:11 04/29/2024 11:19:43 Chronic idiopathic urticaria 765734098 L50.8 Hives persistent with antihistam ine therapy. Solar urticaria 65662819 L56.3 States she gets significan t hives when driving, would like DMV form completed to tint windows Will fill this out [id number] Katia Jc NP [facility] [address] [place] [place], [address] [address] 05/26/2024 13:57:43 05/26/2024 16:10:57 [id number] Katia Jc NP [facility] [address] [place] [place], [address] [address] 07/17/2024 12:41:01 07/17/2024 16:42:11 [id number] DORIAN Gann [address] [place] [address] 07/23/2024 16:36:35 07/23/2024 17:17:07 Cervical lymphadenopathy 063077380 R59.0 Patient declines antibiotic today [id number] Luis Schaefer MD [facility] [place] [address] [place] [address] 09/18/2024 16:06:13 09/19/2024 09:53:15 Mass of left parotid gland 8528703198 9206237 R22.1 Health Concerns Section Related Observation LastModified by Organization Detai ls LastModified Time None Recorded Concern Status LastModified by Organization Details LastModified Time None Recorded Advance Directives Directive N: Payers Encounter Date Sequence Insurance Name Policy Number Policy Rios Covered Member ID Rios Member ID Guarantor Name 11/28/2023 1 [employer] - CHOICE (POS II) Billie Deshpande [id number] Billie Deshpande 04/01/2024 1 [employer] - CHOICE (POS II) Billie Deshpande [id number] Billie Deshpande 07/23/2024 1 [employer] [place] ON [place] AFTER 2020 (MEDICAID REPLACEMENT - HMO) Billie Deshpande [id number] Billie Deshpande 09/18/2024 1 [employer] [place] (MEDICAID REPLACEMENT - HMO) Billie Deshpande [id number] Billie Deshpande Notes Date Note Type Note Provider Name and Address Organization Details Recorded Time 11/28/2023 text/html Billie is here today to discuss migraines and skin issues. Billie has a history of migraine headaches. She previously took butalbital as an abortive therapy for migraines but switched to sumatriptan. She has multiple side effects with the sumatriptan, including feeling hung over , nausea, and inability to function. She is taking 4-5 Excedrin migraines daily. Once per month she has photophobia and has to sleep in a dark room to recover. She has nausea and vomiting with migraines. Last summer she noticed while gardening that her back became itching and burning while in the sun, she went to see dermatology and was told she has solar urticaria. She was told to stay out of the sun and wear sun block. She does this and is protecting her skin, but will still get hives even in her car when there is a high UV index. She would like some medication to help manage these hives. Flu Shot: declineCOVID Vaccines: declinesEye exam: up to dateDental exam: due, recommendedWWE: declines DORIAN Gann [address] [place], [address], to-BBB 11/28/2023 12:47:21 04/01/2024 text/html Billie Deshpande i s a 38 year old female patient here today for concentration issues. She states that she has progressively worsening. She has had issues with spelling, thinking, forgetfulness, and confusion. She finds herself doing things that are abnormal. She has been repeating things to other multiple times and not realizing it. She has forgotten that she had paid rent. She has missed multiple appointments, even after setting alarms. She has been having difficulty spelling her name. She is having difficulty finding words. ADHD self audit score: 5Her son does have ADHD DORIAN Gann [address], [place], [address], to-BBB 04/01/2024 16:17:18 04/29/2024 text/html Billie Deshpande i s a 38 year old female patient here today to FU on medications. She is struggling with chronic hives, typically caused by sun exposure. States this is occurring any time she goes outside and is especially aggrevated when she is driving. We have attempted coverage for Xolair and will try this again.Insurance has not covered derm or senior mobile application developer, we will try this again as well. She expresses concerns that this is related to lupus, will do ARABELLA to rule out. DORIAN Gann [address], [address], [place], [address], [place] 04/29/2024 11:17:25 07/23/2024 text/html Billie Deshpande i s a 39 year old female patient here today for lymph node swelling. Left sided anterior cervical node. She states that she has had this lymph node in the past and took abx, the lymph node never completely went away. She noticed on the 27 of June that the node became sore and tender to touch.Right sided posterior cervical noted on exam DORIAN Gann [address], [address], [place], [address], [place] 07/23/2024 17:01:24 09/18/2024 text/html the patient developed a left parotid mass 1 year ago. She was given antibiotics which did not help and a CT was done demonstrating a 2.8 cm left parotid tail mass. It is very tender. Luis Schaefer MD [address], [place], [address], [place] 09/18/2024 16:40:07 OBGyn Episode No OBEpisode recorded.
--- OUTSIDE RECORDS SUMMARY | 2024-11-05 14:11 | XMS_ITS | Encounter Summary ---
Demographics Address [address] [place] [address] Home Phone Mobile Phone Preferred Language Nauruan Marital Status Sikh Affiliation Unknown Race White Ethnic Group Not or Lati no Author Organization [facility] Address [address] [facility] [place] [address] Phone Care Team Providers Care Instrumentation And Controls Designer Name Role Phone Heraclio Bhatia MD Unavailable [phone] David Ching MD Primary Care Provider [phone] Reason for Visit * Reason Comments Medication Refill Encounter Details Date Type Department Care Team (Late st Contact Info) Description 03/12/2022 Refill [facility] - Family Medicine - [place] [address] [place] [address] David Ching MD [address] [place] [address] Medication Refill Social History Tobacco Use Types Packs/Day Years Used Date Smoking Tobacco: Every Day Cigarettes 0.5 15 Smokeless Tobacco: Never Alcohol Use Standard Drinks/Week Comments No 0 (1 standard drink = 0.6 oz pur e alcohol) PHQ-2 Answer Date Recorded Total Score - Questions 1-9 0 01/01 Sexually Active Control Partners Comments Yes Male Comments No Sex and Gender Information Value Date Recorded Sex Assigned at Not on file Legal Sex Female 9:40 PM CDT Gender Identity Not on file Sexual Orientation Not on file documented as of this encounter Miscellaneous Notes * Telephone Encounter - Harley Capellan, KHANG, VANITA - 03/14/2022 3:30 PM CDT Will wait to refill prescription at appointment. May need to consider other options for treating anxiety. * Telephone Encounter - Danii Murguia RN - 03/14/2022 11:02 AM CDT Patient scheduled for an appointment with Freedom Capellan APRN on 03/17/2022. Please advise if a script forthis medication (xanax) from this office prior to this appointment. * Telephone Encounter - David Ching MD - 03/13/2022 11:06 AM CDT Needs apt ok to see can patcher * Telephone Encounter - Chandra Cedillo RN - 03/13/2022 8:40 AM CDT Medication failed the protocol, provider to review and approve the medication order if appropriate. Requested Prescriptions Pending Prescriptions Disp Refills ALPRAZolam (XANAX) 0.25 MG Tablet [Pharmacy Med Name: ALPRAZOLAM 0.25 MG TABLET] 15 Tablet 0 Sig: TAKE 1 TABLET BY MOUTH EVERY DAY NIGHTLY NEEDED FOR ANXIETY Not Delegated - Benzodiazepines Protocol Failed - 03/12/2022 3:34 PM Failed - This refill cannot be delegated Passed - Visit with relevant provider in past 12 months or upcoming 90 days Recent Visits Date Type Provider Dept 05/12/21 Office Visit David Ching MD [facility] Showing recent visits within past 365 days and meeting all other requirements Future Appointments No visits were found meeting these conditions. Showing future appointments within next 90 days and meeting all other requirements documented in this encounter Plan of Treatment Not on file documented as of this encounter Visit Diagnoses Diagnosis Anxiety state Anxiety state, unspecified documented in this encounter Additional Health Concerns Assessment Noted Time PHQ-9 Depression Total Score: 0 05/19/20 21 11:43 AM CDT documented as of this encounter Care Teams Instrumentation And Controls Designer Relationship Specialty Start Date End Date David Ching MD [address] [place] [address] PCP - General Family Medicine 06/18/18 Heraclio Bhatia MD [address] [address] General Surgery 09/14/16 documented as of this encounter
--- OUTSIDE RECORDS SUMMARY | 2024-11-05 14:11 | XMS_ITS | Encounter Summary ---
Demographics Address [address] [place] [address] Home Phone Mobile Phone Preferred Language Tanzanian Marital Status Methodist Affiliation Unknown Race White Ethnic Group Not or Lati no Author Organization [facility] Address [address] [facility] [place] [address] Phone Care Team Providers Care Event Sales Assistant Name Role Phone Heraclio Bhatia MD Unavailable [phone] David Ching MD Primary Care Provider [phone] Reason for Visit * Reason Comments Medication Refill Encounter Details Date Type Department Care Team (Late st Contact Info) Description 07/06/2022 Refill [facility] - [facility] - [place] [address] [place] [address] Harley Capellan, FLOOR NURSE, DRUM FILLER [address] [place] [address] Medication Refill Social History Tobacco Use Types Packs/Day Years Used Date Smoking Tobacco: Every Day Cigarettes 0.5 15 Smokeless Tobacco: Never Comments:Vaping Alcohol Use Standard Drinks/Week Comments No 0 (1 standard drink = 0.6 oz pur e alcohol) PHQ-2 Answer Date Recorded Total Score - Questions 1-9 12 03/03 Sexually Active Control Partners Comments Yes Male Comments No Sex and Gender Information Value Date Recorded Sex Assigned at Not on file Legal Sex Female 9:40 PM CDT Gender Identity Not on file Sexual Orientation Not on file COVID-19 Exposure Response Date Recorded In the last 10 days, have yo u been in contact with someone who was confirmed or suspected to have Coronavirus/COVID-19? No / Unsure 07/07/2022 8:27 AM CDT documented as of this encounter Miscellaneous Notes * Telephone Encounter - Anusha Shah RN - 07/07/2022 8:18 AM CDT Medication failed the protocol, provider to review and approve the medication order if appropriate. Requested Prescriptions Pending Prescriptions Disp Refills ALPRAZolam (XANAX) 0.25 MG Tablet [Pharmacy Med Name: ALPRAZOLAM 0.25 MG TABLET] 15 Tablet 0 Sig: Take 1 Tablet by mouth nightly as needed for Anxiety. Not Delegated - Benzodiazepines Protocol Failed - 07/06/2022 11:17 AM Failed - This refill cannot be delegated Passed - Visit with relevant provider in past 12 months or upcoming 90 days Recent Visits Date Type Provider Dept 03/17/22 Office Visit Harley Capellan APRN, DRUM FILLER [facility] Showing recent visits within past 365 days and meeting all other requirements Today's Visits Date Type Provider Dept 07/07/22 Appointment Kina Rodriguez, PAC [facility] Showing today's visits and meeting all other requirements Future Appointments No visits were found meeting these conditions. Showing future appointments within next 90 days and meeting all other requirements documented in this encounter Plan of Treatment Not on file documented as of this encounter Visit Diagnoses Diagnosis Anxiety state Anxiety state, unspecified documented in this encounter Additional Health Concerns Assessment Noted Time PHQ-9 Depression Total Score: 12 022 11:00 AM CDT documented as of this encounter Care Teams Event Sales Assistant Relationship Specialty Start Date End Date David Ching MD [address] [place] [address] PCP - General Family Medicine 06/18/18 Heraclio Bhatia MD #[address] [address] General Surgery 09/14/16 documented as of this encounter
--- OUTSIDE RECORDS SUMMARY | 2024-11-05 14:11 | XMS_ITS | Encounter Summary ---
Demographics Address [address] [place] [address] Home Phone Mobile Phone Preferred Language Canadian Marital Status Rastafarian Affiliation Unknown Race White Ethnic Group Not or Lati no Author Organization [facility] Address [address] [facility] [place] [address] Phone Care Team Providers Care Diamond Mounter Name Role Phone Heraclio Bhatia MD Unavailable [phone] David Ching MD Primary Care Provider [phone] Reason for Visit * Reason Onset Date Comments Medication Refill 04/28/2020 Fioricet Encounter Details Date Type Department Care Team (Late st Contact Info) Description 04/26/2020 Refill [facility] - Family Medicine - [place] [address] [place] [address] David Ching MD [address] [place] [address] Medication Refill (Fioricet) Social History Tobacco Use Types Packs/Day Years Used Date Smoking Tobacco: Every Day Cigarettes 0.5 15 Smokeless Tobacco: Never Alcohol Use Standard Drinks/Week Comments No 0 (1 standard drink = 0.6 oz pur e alcohol) PHQ-2 Answer Date Recorded PHQ-2 Score 0 05/13/2019 Sexually Active Control Partners Comments Yes Male Comments No Sex and Gender Information Value Date Recorded Sex Assigned at Not on file Legal Sex Female 9:40 PM CDT Gender Identity Not on file Sexual Orientation Not on file documented as of this encounter Miscellaneous Notes * Telephone Encounter - Mariza Carvajal RN - 04/28/2020 2:27 PM CDT Notified needs appt. Set one up for 2nd week in may * Telephone Encounter - David Ching MD - 04/28/2020 2:08 PM CDT Please schedule appointment I have not seen her for over 1 year * Telephone Encounter - Kayy Nicholas RN - 04/28/2020 1:37 PM CDT Last filled 12/22/19 for 60/1 RF. Last OV: 08/06/19 Next OV: None BP Readings from Last 3 Encounters: 08/06/19 124/66 04/09/19 100/60 01/14/19 102/60 Lab Results Component Value Date SODIUM 138 11/01/2018 POTASSIUM 4.0 11/01/2018 CHLORIDE 107 11/01/2018 CO2VEN 22 11/01/2018 ANIONGAP 9.0 11/01/2018 GLUCOSE 86 11/01/2018 BUN 9 11/01/2018 CREATININE 0.77 11/01/2018 BCRATIO8 12 11/01/2018 TOTALPROTEIN 6.8 11/01/2018 ALBUMIN 4.2 11/01/2018 CALCIUM 9.0 11/01/2018 TBIL 0.4 11/01/2018 SGOTAST 14 11/01/2018 SGPTALT 11 11/01/2018 ALKALINEPHO 69 11/01/2018 GFRNA >60 11/01/2018 GFRA >60 11/01/2018 Routing to provider per protocol as medication(s) can not be signed by a nurse for approval. documented in this encounter Plan of Treatment Not on file documented as of this encounter Visit Diagnoses Diagnosis Chronic nonintractable headache, unspecified headache type documented in this encounter Additional Health Concerns Assessment Noted Time PHQ-9 Depression Total Score: 0 11/02/19 19 10:12 AM CONCERT PROMOTER documented as of this encounter Care Teams Diamond Mounter Relationship Specialty Start Date End Date David Ching MD [address] [place] [address] PCP - General Family Medicine 06/18/18 Heraclio Bhatia MD #[address] [address] General Surgery 09/14/16 documented as of this encounter
--- OUTSIDE RECORDS SUMMARY | 2024-11-05 14:11 | XMS_ITS | Encounter Summary ---
Demographics Address [address] [place] [address] Home Phone Mobile Phone Preferred Language Yemeni Marital Status Latter-Day Affiliation Unknown Race White Ethnic Group Not or Lati no Author Organization [facility] Address [address] [place] [address] Phone Care Team Providers Care Immigration Case Manager Name Role Phone Heraclio Bhatia MD Unavailable [phone] David Ching MD Primary Care Provider [phone] Encounter Details Date Type Department Care Team (Late st Contact Info) Description 04/11/2022 Telephone [facility] - Family Medicine - [place] [address] [place] [address] David Ching MD [address] [place], [place] [id number] Social History Tobacco Use Types Packs/Day Years [...] suspected to have Coronavirus/COVID-19? No / Unsure 03/17/2022 11:23 AM CDT documented as of this encounter Miscellaneous Notes * Telephone Encounter - Manju Castano - 04/12/2022 11:17 AM CDT Patient was notified of RX being sent to her pharmacy on file. She verbalized understanding. * Telephone Encounter - Harley Capellan APRN, CNP - 04/11/2022 5:26 PM CDT Sent prescription to pharmacy. * Telephone Encounter - Genna Langston RN - 04/11/2022 2:00 PM CDT Patient calling reports she had a recent visit with CUSTOMER SERVICE OPERATOR and was offered RX for Hydroxyzine but declined at that time as she wanted to do some research on medication first. Patient would like to proceeded with taking this medication for anxiety. Preferred pharmacy is [facility] in [place]. Provider please advise. documented in this encounter Plan of Treatment Not on file documented as of this encounter Visit Diagnoses Diagnosis Anxiety state- Primary Anxiety state, unspecified documented in this encounter Additional Health Concerns Assessment Noted Time PHQ-9 Depression Total Score: 12 022 11:00 AM CDT documented as of this encounter Care Teams Immigration Case Manager Relationship Specialty Start Date End Date David Ching MD [address] [place] [address] PCP - General Family Medicine 06/18/18 Heraclio Bhatia MD #[address] [address] General Surgery 09/14/16 documented as of this encounter
--- OUTSIDE RECORDS SUMMARY | 2024-11-05 14:11 | XMS_ITS | Clinical Summary ---
Demographics Address [address] [place] [address] Home Phone Mobile Phone Preferred Language Uruguayan Marital Status Judaism Affiliation Unknown Race White Ethnic Group Not or Lati no Author Organization [facility] Address [address] [place] [address] Phone Care Team Providers Care Trimmer Climber Name Role Phone Heraclio Bhatia MD Unavailable [phone] David Ching MD Primary Care Provider [phone] Allergies Active Allergy Reactions Criticality Noted Date Comments Other Hives,Itching 11/01/2018 SILK TAPE Penicillins Anaphylaxis 09/02/2016 Medications Ventolin HFA 108 (90 Base) MCG/ACT Aerosol SolutionIndication s:Bronchospasm TAKE 1-2 PUFFS BY INHALATION EVERY 4 HOURS NEEDED FOR WHEEZING OR COUGH. 18 Inhaler 3 01/21/20 21 Active butalbital-acetami nophen-caffeine (FIORICET, ESGIC) 50-325-40 MG TabletIndications: Chronic nonintractable headache, unspecified headache type Take 1 Tablet by mouth 2 times daily as needed for Headaches or Migraine. 60 Tablet 5 05/12/20 21 Active naproxen (NAPROSYN) 500 MG TabletIndications: Chronic intractable headache, unspecified headache type TAKE 1 TABLET BY MOUTH TWICE A DAY WITH MEALS 60 Tablet 3 07/20/20 21 Active Additional Information Patient not taking.Reported on 07/07/2022 ibuprofen (MOTRIN) 800 MG TabletIndications: Chronic bilateral low back pain without sciatica Take 1 Tablet by mouth every 8 hours. 30 Tablet 3 03/17/20 22 Active hydrOXYzine (ATARAX) 10 MG TabletIndications: Anxiety state Take 2.5 Tablets by mouth every 6 hours as needed for Anxiety. 90 Tablet 04/11/20 Active Additional Information Patient not taking.Reported on 07/07/2022 ALPRAZolam (XANAX) 0.25 MG TabletIndications: Anxiety state TAKE 1 TABLET BY MOUTH NIGHTLY NEEDED FOR ANXIETY. 15 Tablet 07/08/20 Active Vit-Fe Fumarate-FA ( VITAMIN PO) Take 1 Tablet by mouth daily. Active Active Problems Problem Noted Date Diagnosed Date Chronic bilateral low back pain without sciatica 03/17/2022 Iron deficiency anemia due to chronic blood loss 05/11/2020 Bronchospasm 05/11/2020 Anxiety state 05/11/2020 Mixed hyperlipidemia 05/11/2020 Pica in adults 05/11/2020 Overview (05/11/2020): Ice craving Chronic nonintractable headache 01/14/2019 Dysmenorrhea 09/02/2016 Menorrhagia with irregular cycle 09/02/2016 Resolved Problems Problem Noted Date Diagnosed Date Resolved Date Acute appendicitis 09/02/2016 7 Immunizations Immunization Administration Dates Next Due TD VACCINE 06/01/2021 Family History Medical History Relation Name Comments Diabetes Maternal Grandfather Diabetes Maternal Grandmother Breast Cancer Neg Hx Colon Cancer Neg Hx Ovarian Cancer Neg Hx Relation Name Status Comments Father Alive Maternal Grandfather Maternal Grandmother Mother Alive Social History Tobacco Use Types Packs/Day Years Used Date Smoking Tobacco: Every Day Cigarettes 0.5 15 Smokeless Tobacco: Never Tobacco Cessation:Counseling Given: Yes Comments:Vaping Alcohol Use Standard Drinks/Week Comments No [...] on file Sexual Orientation Not on file Last Filed Vital Signs Vital Sign Reading Time Taken Comments Blood Pressure 104/72 07/07/2022 8:30 AM CDT Pulse 99 07/07/2022 8:30 AM CDT Temperature 36.6 C (97.9 F) 07/07/2022 8:30 AM CDT Respiratory Rate 18 07/07/2022 8:30 AM CDT Oxygen Saturation 100% 07/07/2022 8:30 AM CDT Inhaled Oxygen Concentration - - Weight 66.7 kg (147 lb) 07/07/2022 8:30 AM CDT Height 165.1 cm (5' 5 ) 07/07/2022 8:30 AM CDT Body Mass Index 24.46 07/07/2022 8:30 AM CDT Plan of Treatment Health Maintenance Due Date Last Done Comments Hepatitis C Virus (HCV) Screening 1985 TdaP Immunization 1985 Hepatitis B Immunization (1 of 3 - 19+ 3-dose series) 2005 Influenza Immunization (#1) 2024 SARS-COV-2 Immunization (2023-25 season) 2024 Respiratory Syncytial Virus (RSV) Immunization (Adult) (1 - 1-dose 75+ series) 2061 Cervical Cancer Screening (CCS) Discontinued HPV/Cotest Discontinued 06/18/2018 Pap Smear Discontinued 06/18/2018 Meningococcal Immunization (ACWY) Aged Out No longer eligible based on patient's age to complete this topic Pneumococcal Immunization Combined Aged Out No longer eligible b ased on patient's age to complete this topic Rotavirus Immunization Aged Out No lo nger eligible based on patient's age to complete this topic Procedures Procedure Name Priority Date/Time Associated Diagnosis Comments HUMAN PAPILLOMA VIRUS (HPV) Routine 06/18/2018 9:29 AM CDT Encounter for gynecological examination without abnormal finding Screening for malignant neoplasm of cervix Encounter for screening for human papillomavirus (HPV) PATHOLOGY CYTOLOGY BRUSH OPERATOR Routine 06/18/2018 9:29 AM CDT Encounter for gynecological examination without abnormal finding Screening for malignant neoplasm of cervix Encounter for screening for human papillomavirus (HPV) from Last 3 Months or Most Recently Relevant to Health Maintenance Results * PATHOLOGY CYTOLOGY BRUSH OPERATOR (06/18/2018 9:29 AM CDT) SPECIMEN ADEQUACY Satisfactory for evaluation. Endocervical cells present. 07/01/2018 3:19 PM CDT [facility] DESCRIPTIVE DIAGNOSIS Negative for intraepithelial lesions. No dysplastic cells present. 07/01/2018 3:19 PM CDT [facility] MATED EXAMINATION Analysis of this sample has been assisted by an automated imaging and review system ([employer] System, [employer], [place], [place]). This case is further evaluated and finalized by a refueling rampman and/or pathologist. 07/01/2018 3:19 PM CDT [facility] DISCLAIMER The PAP smear is a screening test designed to detect cancerous or precancerous cells of the uterine cervix. It is one of the best means available for detection of cervical cancer but still carries an inherent false-negative rate. The consequences of a false-negative PAP result can be minimized by adhering to current screening guidelines. The following are general guidelines recommended by the ACS, ASCP, ASCCP, and ACOG: PAP testing is recommended every three years for women 21-29, Co-Testing , a PAP test in conjunction with an HPV (Human Papillomavirus) test for women ages 30-65, and no PAP or HPV testing for women under the age of 21 or older than 65 unless clinically indicated. 07/01/2018 3:19 PM CDT [facility] Case Report Gynecologic Cytology Report Case: [id number] Authorizing Provider: Tiffanie Amaya MD Collected: 06/18/2018 09:29 AM Ordering Location: [facility] Received: 06/18/2018 09:29 AM ANITA First Screen: Renee Javier Specimen: TP Screen, CERVIX/ENDOCERVIX 07/01/2018 3:19 PM CDT [facility] HPV Reflex if ASCUS? No 07/01/2018 3:19 PM CDT [facility] Specimen of unknown material (specimen) CERVIX UTERI STRUCTURE / Unknown Non-Phlebotomy Collection / Unknown 06/18/2018 9:29 AM CDT 06/18/2018 9:29 AM CDT us Tiffanie Plata MD PATHOLOGY/CYTOLO GY ORDERABLES Final Result [facility] [address] [place] [address], [place] * HUMAN PAPILLOMA VIRUS (HPV) (06/18/2018 9:29 AM CDT) HPV OTHER HIGH RISK TYPES, PCR NEGATIVE NEGATIVE 06/23/2018 7:29 AM CDT [facility] Comment: The following Other High Risk types were not detected: 31, 33, 35, 39, 45, 51, 52, 56, 58, 59, 66, and 68. A negative high-risk HPV result does not exclude the possibility of future cytologic HSIL or underlying CIN2-3 or cancer. The presence of PCR inhibitors may cause false negative or invalid results. If concentrations of whole blood in the sample exceed 1.5% (dark red or brown coloration) in PreservCyt solution, there is a likelihood of obtaining a false-negative result. HPV TYPE 16 NEGATIVE NEGATIVE 06/23/2018 7:29 AM CDT [facility] Comment: A negative high-risk HPV result does not exclude the possibility of future cytologic HSIL or underlying CIN2-3 or cancer. The presence of PCR inhibitors may cause false negative or invalid results. If concentrations of whole blood in the sample exceed 1.5% (dark red or brown coloration) in PreservCyt solution, there is a likelihood of obtaining a false-negative result. HPV TYPE 18 NEGATIVE NEGATIVE 06/23/2018 7:29 AM CDT [facility] Comment: A negative high-risk HPV result does not exclude the possibility of future cytologic HSIL or underlying CIN2-3 or cancer. The presence of PCR inhibitors may cause false negative or invalid results. If concentrations of whole blood in the sample exceed 1.5% (dark red or brown coloration) in PreservCyt solution, there is a likelihood of obtaining a false-negative result. Specimen of unknown material (specimen) Non-Phlebotomy Collection / Unknown 06/18/2018 9:29 AM CDT 06/18/2018 9:29 AM CDT Narrative [facility] - 06/23/2018 7:29 AM CDT Performed by Real-Time Polymerase Chain Reaction (PCR) on the [employer] 4800. This assay has been validated for use with post-aliquot samples from the [employer] processor. us Tiffanie Plata MD LAB SEND OUTS Final Result [facility] [address] [place] [address], from Last 3 Months or Most Recently Relevant to Health Maintenance Insurance * Guarantor: Billie Deshpande Account Type Relation to Patient Date of Phone Billing Address Personal/Family Self 1985 [address] [place] [address] MEDICAID [employer] [facility] * Guarantor: Gloria Oliver Account Type Relation to Patient Date of Phone Billing Address Personal/Family Self 12/26/2005 [address] [place] [address] Advance Directives * Full Code (Latest Code Status on File) Date Activated Date Inactivated Comments 09/02/2016 10:39 AM 09/02/2016 10:41 PM CPR-Full Treatment: FULL ARREST: Attempt Resuscitation/CPR wit intubation and mechanical ventilation. PRE-ARREST: Use entire range of life support measures to stabilize the patient. Care Teams Trimmer Climber Relationship Specialty Start Date End Date David Ching MD [address] [place] [address] PCP - General Family Medicine 06/18/18 Heraclio Bhatia MD [address] [address] General Surgery 09/14/16
== END 2024-11-05 12:55 | disposition home or self-care (01) ==
PROVIDERS: PCP Family Medicine; Visit Provider Otolaryngology
DX: R22.1 Localized swelling, mass and lump, neck (principal)
CPT/HCPCS: 10005; 88108; 88305

== ENCOUNTER 2025-03-22 17:42 | Emergency (ER) | payer OTHER, SELFPAY ==
--- OUTSIDE RECORDS SUMMARY | 2025-03-22 17:44 | XMS_ITS | Encounter Summary ---
Author Organization [facility] Address [address] [place] [address] Phone Care Team Providers Care Pre School Teacher Name Role Phone Heraclio Bhatia MD Unavailable David Ching MD Primary Care Provider Ari Heck MD Primary Care Provider Reason for Visit * Reason Comments Medication Refill Encounter Details Date Type Department Care Team (Late st Contact Info) Description 03/12/2022 Refill [facility] - Family Medicine - [place] [address] [place], [place] [id number] David Ching MD [address] [place] [address] Medication Refill Social History Tobacco Use Types [...] Notes * Telephone Encounter - Harley Capellan, TEACHER DANCING, PRODUCTION PATTERN MAKER - 03/14/2022 3:30 PM CDT Will wait [...] AM CDT Needs apt ok to see rodding anode worker * Telephone Encounter - Chandra Cedillo RN [...] Dept 05/12/21 Office Visit David Ching MD [facility] Showing recent visits within past 365 [...] Noted Time PHQ-9 Depression Total Score: 0 01/20/20 21 11:43 AM CDT documented as of this encounter Care Teams Pre School Teacher Relationship Specialty Start Date End Date David Ching MD [address] [place] [address] PCP - General Family Medicine 06/18/18 02/02/25 Ari Heck MD [address] [place] [address] PCP - General Family Medicine 02/03/25 Heraclio Bhatia MD [address] [address] General Surgery 09/14/16 documented as of this encounter
--- OUTSIDE RECORDS SUMMARY | 2025-03-22 17:44 | XMS_ITS | Encounter Summary ---
Author Organization [facility] Address [address] [place] [address] Phone Care Team Providers Care Deputy Attorney General Name Role Phone Heraclio Bhatia MD Unavailable [phone] David Ching MD Primary Care Provider Ari Heck MD Primary Care Provider [phone] Reason for Visit * Reason Onset Date Comments Medication Refill 04/28/2020 Fioricet Encounter Details Date Type Department Care Team (Late st Contact Info) Description 04/26/2020 Refill [facility] - Family Medicine - [place] [address] [place], [place] [id number] David Ching MD [address] [place] [address] Medication Refill (Fioricet) Social History Tobacco Use [...] Total Score: 0 11/02/19 19 10:12 AM 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
--- OUTSIDE RECORDS SUMMARY | 2025-03-22 17:44 | XMS_ITS | Data Portability ---
Author Organization [place] [facility], Main Office Address [address] [place] [address] Care Team Providers Care Stock Patch Sawyer Name Role Phone CHASE COONEY Primary Care Provider Unavailabl e Assessment No assessment recorded. Plan of Treatment Reminders Order Date Submit Date Provider Last Modified By Organization Details Last Modified Time Details Appointments None recorded. Lab ARABELLA (antinuclea r antibodies) panel, serum 2023 024 [facility] (Lab), [address] [place], [address], 4 21:23:12 Referral assembly line brazer & immunologis t referral - Please call patient to schedule an appointment . Thank you. 2023 024 [email or web address] Matt Ac MD, [address], [facility], [place], [address], 4 09:42:01 Procedures fine needle aspiration, ultrasound guided, neck mass (PROC) 2024 025 [email or web address] [address] [place] [address] Imaging, [address] [facility] [address], [place], [address], 5 13:45:35 Surgeries None recorded. Imaging CT, head + neck, w/ contrast - *Please call pt to schedule* 2023 024 [email or web address] 256 [facility] (Radiology), [address] [place], [address], 4 09:34:32 Medication Orders levofloxaci n 500 mg tablet 2024 025 [email or web address] [facility] [address] In [facility], [address], [place], [address], 5 09:09:30 omalizumab 150 mg/mL subcutaneou s auto-inject or 2023 024 [email or web address] Specialty Pharmacy, [address] [facility], [address], [place], [address], 16:44:04 Patient TargetsNo targets recorded. Patient Instructions Encounter Date Encounter Id Patient Instructions Last Modified By Organization Details Last Modified Time 11/24/2024 [id number] this patient undergo left parotidectomy with facial nerve monitoring. Not available 11/24/2024 15:30:05 02/19/2025 [id number] will start off with a sinus CT and determine the degree of the fistula and whether or not surgical intervention is going to be recommended. Not available 02/19/2025 15:21:02 Reason for Referral Or Nurse Manager & Cans Vacuum Tester Ref erral for Chronic idiopathic urticaria Please call patient to schedule an appointment. Thank you. Referring Physician: Chase Cooney, Family Medicine, Encounter Date: 04/29/2024 Results Created Date Observation Date Name Description Value Unit Range Abnormal Flag Note LastModifiedBy Organization Detail LastModifiedTime 08/29/20 24 08/29/2024 CT, neck, soft tissu e, w/ contr ast No observ ation record ed. [email or web address] [address] [place], [address], 09/04/2024 12:20:29 11/06/19 25 11/05/2024 core biops y of parot id mass, ultra sound guide d (PROC ) No observ ation record ed. [facility] [address], [place], [address], 11/05/2024 15:33:09 11/18/19 25 11/05/2024 core biops y of parot id mass, ultra sound guide d (PROC ) No observ ation record ed. [email or web address] [facility] [address], [place], [address], 11/17/2024 10:32:08 Result Notes None recorded. Problems Name Problem SNOMED Code Status Onset Date Resolution Date Notes Provider Name and Address Organization Details Recorded Time Anxiety 95908494 Active 2022 Medina Doyle NP [address], [place], [address], [facility] [employer] 3 11:12:24 Migraine 61883152 Active 2022 Medina Doyle NP [address], [place], [address], [employer] 3 11:14:56 Gastroesoph ageal reflux disease 920600766 Active 2022 Medina Doyle NP [address], [place], [address], [employer] [facility] [employer] [facility] 3 11:20:08 Abnormal cervical Papanicolao u smear 915590047 Active 2022 Medina Doyle NP [address], [place], [address], [employer] [facility] 3 11:24:38 Skin lesion 98386428 Active 2022 Medina Doyle NP [address], [place], [address], [employer] [facility] [employer] [facility] 3 11:27:48 Hyperlipide jorge a 58559507 Active 2022 Medina Doyle NP [address], [place], [address], [employer] 3 11:29:48 Vitamin D deficiency 32027064 Active 2022 Medina Doyle NP [address], [place], [address], [facility] [employer] [facility] 3 11:29:55 Hearing loss 53050986 Active 2022 Medina Doyle, ERMA [address], [place], [address], [employer] 3 11:34:07 Solar urticaria 95870390 Active 2023 DORIAN Gann [address], [place], [address], [employer] 4 10:55:36 Hypercholes terolemia 53226637 Active 2023 DORIAN Gann [address], [place], [address], [employer] 4 11:21:36 Forgetful 56360955 Active 2023 DORIAN Gann [address], [place], [address], [employer] 4 16:14:02 Unable to concentrate 32127178 Active 2023 DORIAN Gann [address], [place], [address], [employer] 4 16:14:36 Word finding difficulty 331671183 Active 2023 DORIAN Gann [address], [place], [address], [employer] 4 15:00:32 Chronic idiopathic urticaria 830975298 Active 2023 DORIAN Gann [address], [place], [address], [employer] 4 11:06:07 Cervical lymphadenop athy 041770580 Active 2023 DORIAN Gann [address], [place], [address], [employer] 4 16:53:29 Mass of parotid gland 861564150 Active 2024 DORIAN Gann [address] [facility], [facility] [address], [place], [address], 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 Procedures Surgical History Date Name Laterality Status Provider Name and Address Organization Details Recorded Time 02/04/20 partial parotidectomy completed Leah Orlando RN [facility] [facility] 02/18/2025 14:25:24 tonsillectomy and adenoidectomy completed Medina Porter RN [facility] 01/24/2023 10:53:36 Myringotomy Tube Placement completed Leah Orlando RN [facility] [employer] [facility] 09/18/2024 16:10:44 Tubal Ligation completed Medina Porter RN [facility] [employer] [facility] 01/24/2023 10:54:08 Imaging Results None recorded. Procedure Notes None recorded. Medical Equipment None Reported. Allergies Allergen ID Allergen Name Allergen Category Reaction Reaction Severity Criticality Documentation Date Start Date Code Code System Note Provider Name and Address Organization Details Recorded Time 87704 Product containin g penicilli n (product) medicatio n Not available Not available Not available 01/24/2023 75750 8001 SNOMED LASHAWN Feng, [facility] 3 10:45:35 Medications Name Sig Start Date Stop [...] completed Not Available Not Available Not Available azithromyci n 250 mg tablet PLEASE SEE ATTACHED FOR DETAILED DIRECTION S 02/18 completed Not Available Not Available Not Available ibuprofen 800 mg tablet TAKE 1 TABLET BY MOUTH EVERY 8 HOURS 11/27 completed Not Available Not Available Not Available hydrocodone 5 mg-acetamin ophen 325 mg tablet TAKE 1 TABLET BY MOUTH EVERY 6 HOURS NEEDED FOR PAIN 02/18 completed Not Available Not Available Not Available [...] Not Available Not Available No t Available hydrocodone 7.5 mg-acetamin ophen 325 mg tablet TAKE 1 TABLET BY MOUTH EVERY 4 HOURS NEEDED 02/18 completed Not Available Not Available Not Available cephalexin 500 mg capsule 04/01 completed Not Available Not Available Not Available levofloxaci n 500 mg tablet TAKE 1 TABLET EVERY 24 HOURS BY ORAL ROUTE 11/24 completed Not Available Not Available Not Available methylpredn isolone 4 mg tablets in a dose pack TAKE 6 TABLETS ON DAY 1 DIRECTED ON PACKAGE AND DECREASE BY 1 TAB EACH DAY FOR A TOTAL OF 6 DAYS 02/18 completed Not Available Not Available Not Available hydroxyzine HCl 10 mg tablet Take [...] completed Not Available Not Available Not Available chlorhexidi ne gluconate 0.12 % mouthwash SWISH AND SPIT WITH 1/2 OZ (15 ML) TWICE A DAY FOR 2 WEEKS active Not Available Not Available No t Available vilazodone 40 mg tablet 09/18 completed Not Available Not Available Not Available vilazodone 20 mg tablet TAKE 1 TABLET BY MOUTH EVERY DAY IN THE MORNING 07/23 completed Not Available Not Available Not Available vilazodone 10 mg tablet PLEASE SEE ATTACHED FOR DETAILED DIRECTION S 07/23 completed Not Available Not Available Not Available [facility] ODT 75 mg disintegrat ing tablet Take [...] Updated DateTime 09/18/2024 165.1 cm 26.3 kg/m2 06733.59 g 97.9 [degF] Leah Orlando RN [place] [facility] [place] Narrative 09/18/2024 16:12:52 Date Recorded Body height Body mass index (BMI) Body weight Body temperature Provider Name and Address Organization Details Last Updated DateTime 11/24/2024 165.1 cm 25.6 kg/m2 20309.22 g 97.8 [degF] Leah Orlando RN [facility] [employer] [facility] 11/24/2024 15:19:44 Date Recorded Body height Body mass index (BMI) Body weight Body temperature Provider Name and Address Organization Details Last Updated DateTime 02/19/2025 165.1 cm 24 kg/m2 94882.3 g 98 [degF] Leah Orlando RN [facility] [employer] [facility] 02/19/2025 15:19:17 Date Recorded Body height Body mass index (BMI) Body weight Body temperature Heart rate Respiratory rate Oxygen saturation Oxygen saturation in Arterial blood by Pulse oximetry Systolic And Diastolic Provider Name and Address Organization Details Last Updated DateTime 165.1 cm 26 kg/m2 86731.4 1 g 98 [degF] 113 /min 20 /min 98 % 98 % 120/82 mm[Hg] Medina Porter RN [facility] [employer] [facility] 10:23:34 Date Recorded Body height Body mass index (BMI) Body weight Body temperature Heart rate Respiratory rate Oxygen saturation Oxygen saturation in Arterial blood by Pulse oximetry Systolic And Diastolic Provider Name and Address Organization Details Last Updated DateTime 165.1 cm 26 kg/m2 55268.8 6 g 97.2 [degF] 86 /min 20 /min 98 % 98 % 98/64 mm[Hg] Medina Porter RN [facility] [employer] [facility] 16:46:47 Social History Question Answer Notes LastModified by Organization Details LastModified Time Tobacco Smoking Status Current Every Day Smoker Medina Porter RN [facility] [employer] [facility] 01/24/2023 10:52:21 Do You Have An Advance Directive? No Information not available 11/28/2023 What Is Your Level Of Caffeine Consumption? Moderate Coffee, Tea Information not available 01/24/2023 In The 14 Days Before Symptom Onset, Have You Had Close Contact With A Laboratory-conf mani [place]-19 While That Case Was Ill? No Information not available 01/24/2023 In The 14 Days Before Symptom Onset, Have You Had Close Contact With A Person Who Is Under Investigation For COVID-19 While That Person Was Ill? No Information not available 01/24/2023 What Type Of Diet Are You Following? REGULAR Information not available 11/28/2023 What Is The Highest Grade Or Level Of School You Have Completed Or The Highest Degree You Have Received? [id number] Information not available 01/24/2023 Have There Been Any Changes To Your Family Or Social Situation? No Information not available 01/24/2023 Are There Any Guns Present In Your Home? No Information not available 01/24/2023 Do You Use Insect Repellent Routinely? Yes Information not available 01/24/2023 Where Do You Live? [facility] Information not available 01/24/2023 Do You Have A Medical Power Of Continuous Churn Buttermaker? No Information not available 11/28/2023 How Many [...] Yes Information not available 01/24/2023 Do You Use Sunscreen Routinely? Yes Information not available 01/24/2023 Have You Recently Traveled Abroad? No Information not available 01/24/2023 Sex: Female Functional Status Question Answer Note LastModified by Organizat ion Details LastModified Time Do you use any illicit or recreational drugs? No Information not available 01/24/2023 What is your level of alcohol consumption? None Information not available 01/24/2023 Are you currently employed? No Information not available 01/24/2023 What is your exercise level? None Information not available 11/28/2023 Mental Status Question Answer Note LastModified by Organization D etails LastModified Time Do you feel stressed (tense, restless, nervous, or anxious, or unable to sleep at night)? [id number] Information not available 01/24/2023 Family History Relationship Description Onset Age of this Age Resolved Age Notes LastModified by Organization Details LastModified Time Father No current problems or disability [email or web address] Not available 14:25:59 Mother No current problems or disability [email or web address] Not available 14:25:59 Mother Anxiety disorder [email or web address] Not available 2022 11:07:38 Brother Anxiety disorder [email or web address] Not available 2022 11:07:38 Notes:NO ENT Medical History Condition Response ALLERGIES/HAYFEVER Y DEPRESSION (INCLUDING POST ) Y ENT Y HEARTBURN / REFLUX Y HEADACHES/MIGRAINES Y ANXIETY DISORDER Y Gynecological History Statement/Question Response Flow Heavy [...] SNOMED-CT Code Diagnosis ICD10 Code Diagnosis Note [id number] Medina Doyle NP [facility] [address] [address] 01/24/2023 10:39:28 01/24/2023 11:43:48 Anxiety 15549264 F41.9 Starting on wellbutrin SR 150 mg po bid. Tobacco user 706648432 Z 72.0 Wellbutrin SR 150 mg po bid Migraine 37359960 G43.90 9 Stop fioricet months ago. Start on sumatripta n prn. Pt declined offer for preventive topiramate , amitriptyl ine, qulipta. Gastroesop hageal reflux disease 046427455 K21.9 pepcid 20 mg 2 tab po daily Abnormal c ervical Papanicolaou smear 746969345 R87.619 Pt denies further WWE at this time. 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 Pt decision is no WWE/Pap. 01/24/23 Skin lesion 69274469 L98 .9 States when in sunlight, skin goodwin. Referral to derm made. Anemia screening 8466077 07 Z13.0 Diabetes m ellitus screening 238948101 Z13.1 Thyroid di sorder screening 294183656 Z13.29 Hyperlipidemia 54149065 E78.5 Vitamin D deficiency 347 97487 E55.9 Hearing loss 10105238 H9 1.93 referring to audiologis t. [id number] Medina Doyle NP [address] [address] 02/02/2023 10:28:01 02/02/2023 10:54:35 [id number] Ari Heck MD [address] [address] 11/28/2023 10:24:26 11/28/2023 12:48:42 Migraine 11925219 G43.909 Discussed Propanolol as daily prophylact ic, patient will consider and let us know Solar urticaria 20707058 L56.3 Hypercholesterolemia 136 85434 E78.5 Anxiety 65931269 F41.9 [id number] Ari Heck MD [address] [address] 04/01/2024 15:38:14 04/01/2024 16:38:42 Unable to concentrate 19855628 R41.688 [id number] Katia Jc NP [facility] [address] [address] 04/15/2024 16:46:37 04/16/2024 14:24:53 [id number] Katia Jc NP [facility] [address] [address] 04/28/2024 13:34:56 04/28/2024 15:02:08 [id number] Ari Heck MD [address] [address] 04/29/2024 10:14:11 04/29/2024 11:19:43 Chronic idiopathic urticaria 649996107 L50.8 Hives persistent with antihistam ine therapy. Solar urticaria 26906401 L56.3 States she gets significan t hives when driving, would like DMV form completed to tint windows Will fill this out [id number] Katia Jc NP [facility] [address] [address] 05/26/2024 13:57:43 05/26/2024 16:10:57 [id number] Katia Jc NP [facility] [address] [place] [address] 07/17/2024 12:41:01 07/17/2024 16:42:11 [id number] Ari Heck MD [address] [address] 07/23/2024 16:36:35 07/23/2024 17:17:07 Cervical lymphadenopathy 801813227 R59.0 Patient declines antibiotic today [id number] Luis Schaefer MD [facility] Price [address] [place] [address] 09/18/2024 16:06:13 09/19/2024 09:53:15 Mass of left parotid gland 5760653541 7795611 R22.1 [id number] Luis [facility]ef[facility] [address] [place] [address] 11/24/2024 14:25:53 11/26/2024 15:24:25 Mass of left parotid gland 2153069687 2253285 R22.1 [id number] Luis Schaefer MD [facility] ENT Coreen Jenkins [address] [place] [address] 02/19/2025 14:57:16 02/20/2025 07:47:00 Neoplasm of parotid gland 725456943 D49.0 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 Health Concerns Section Related Observation LastModified by Organization Detai ls LastModified Time None Recorded Concern Status LastModified by Organization Details LastModified Time None Recorded Advance Directives Directive N: Payers Insurance Date Sequence Insurance Name Policy Number Policy Rios Covered Member ID Rios Member ID Guarantor Name 02/07/2025 1 [employer] [place] ON [place] AFTER 2020 (MEDICAID REPLACEMENT - HMO) Billie Deshpande [id number] Billieher Monterot 02/17/2025 1 [employer] [place]ICA[place] REPLAC[place] - [place]MO) Billie Baecht [id number] Billie Baecht 02/07/2025 [employer] [place]PLAC[place] - [place]MO) Billie Baecht [id number] Billie Baecht 02/07/2025 1 [employer] (POS II) Billie Baecht [id number] Billieher Monterot Notes Date Note Type Note Provider Name and Address Organization Details Recorded Time 04/29/2024 text/html Billie Deshpande i s a 38 year old female patient here today to FU on medications. She is struggling with chronic hives, typically caused by sun exposure. States this is occurring any time she goes outside and is especially aggrevated when she is driving. We have attempted coverage for Xolair and will try this again.Insurance has not covered derm or assembly line brazer, we will try this again as well. She expresses concerns that this is related to lupus, will do ARABELLA to rule out. Chase Cooney, [employer] [address] [facility], [facility] [address], [place], [address], [facility] [employer] 04/29/2024 11:17:25 07/23/2024 text/html Billie Baecht i s a 39 year old female [...] noted on exam DORIAN Gann [address], [place], [address], [employer] 07/23/2024 17:01:24 09/18/2024 text/html the patient developed a left parotid mass 1 year ago. She was given antibiotics which did not help and a CT was done demonstrating a 2.8 cm left parotid tail mass. It is very tender. Luis Schaefer MD [address], [place], [address], [employer] 09/18/2024 16:40:07 11/24/2024 text/html this patient had a needle biopsy of the left parotid lesion which was benign. 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 This have been fluctuating for 6 weeks. she is very worried about going back to the dentist. Luis Schaefer MD [address], [place], [address], [email or web address] 02/19/2025 15:22:44 OBGyn Episode No OBEpisode recorded.
--- OUTSIDE RECORDS SUMMARY | 2025-03-22 17:45 | XMS_ITS | Encounter Summary ---
Author Organization [facility] Address [address] [place] [address] Phone Care Team Providers Care Clinical Research Director Name Role Phone Heraclio Bhatia MD Unavailable [phone] David Ching MD Primary Care Provider [phone] Ari Heck MD Primary Care Provider [phone] Encounter Details Date Type Department Care Team (Late st Contact Info) Description 04/11/2022 Telephone [facility] - Family Medicine - [place] [address] [place], [place] [phone] David Ching MD [address] [place], [place] [id number] Social History Tobacco Use Types Packs/Day Years [...] Notes * Telephone Encounter - Manju Castano Sandy - 04/12/2022 11:17 AM CDT Patient was notified of RX being sent to her pharmacy on file. She verbalized understanding. * Telephone Encounter - Harley Capellan APRN, CNP - 04/11/2022 5:26 PM CDT Sent prescription to pharmacy. * Telephone Encounter - Genna Langston RN - 04/11/2022 2:00 PM CDT Patient calling reports she had a recent visit with ENVIRONMENTAL COMPLIANCE ENGINEER and was offered RX for Hydroxyzine but declined at that time as she wanted to do some research on medication first. Patient would like to proceeded with taking this medication for anxiety. Preferred pharmacy is [facility] in [place]. Provider please advise. documented in this encounter Plan of Treatment Not on file documented as of this encounter Visit Diagnoses Diagnosis Anxiety state- Primary Anxiety state, unspecified documented in this encounter Additional Health Concerns Assessment Noted Time PHQ-9 Depression Total Score: 12 022 11:00 AM CDT documented as of this encounter Care Teams Clinical Research Director Relationship Specialty Start Date End Date David Ching MD [address] [place] [address] PCP - General Family Medicine 06/18/18 02/02/25 Ari Heck MD [address] [place] [address] PCP - General Family Medicine 02/03/25 Heraclio Bhatia MD [address] [facility] [address] [address] [address] General Surgery 09/14/16 documented as of this encounter
--- OUTSIDE RECORDS SUMMARY | 2025-03-22 17:45 | XMS_ITS | Clinical Summary ---
Author Organization [facility] Address [address] [place] [address] Phone Care Team Providers Care Art Sales Consultant Name Role Phone Heraclio Bhatia MD Unavailable [phone] Ari Heck MD Primary Care Provider [phone] Allergies Active Allergy Reactions Criticality Noted Date Comments Other Hives,Itching 11/01/2018 SILK TAPE Penicillins Anaphylaxis 09/02/2016 Medications Ventolin HFA 108 (90 Base) MCG/ACT Aerosol SolutionIndication s:Bronchospasm TAKE 1-2 PUFFS BY INHALATION EVERY 4 HOURS NEEDED FOR WHEEZING OR COUGH. 18 Inhaler 3 01/21/20 21 Active Additional Information Patient not taking.Reported on 01/20/2025 butalbital-acetami nophen-caffeine (FIORICET, ESGIC) 50-325-40 MG TabletIndications: Chronic nonintractable headache, unspecified headache type Take 1 Tablet by mouth 2 times daily as needed for Headaches or Migraine. 60 Tablet 5 05/12/20 Active Additional Information Patient not taking.Reported on 01/20/2025 naproxen (NAPROSYN) 500 MG TabletIndications: Chronic intractable headache, unspecified headache type TAKE 1 TABLET BY MOUTH TWICE A DAY WITH MEALS 60 Tablet 3 07/20/20 21 Active Additional Information Patient not taking.Reported on 01/20/2025 ibuprofen (MOTRIN) 800 MG TabletIndications: Chronic bilateral low back pain without sciatica Take 1 Tablet by mouth every 8 hours. 30 Tablet 3 03/17/20 22 Active hydrOXYzine (ATARAX) 10 MG TabletIndications: Anxiety state Take 2.5 Tablets by mouth every 6 hours as needed for Anxiety. 90 Tablet 04/11/20 22 Active Additional Information Patient not taking.Reported on 01/20/2025 ALPRAZolam (XANAX) 0.25 MG TabletIndications: Anxiety state TAKE 1 TABLET BY MOUTH NIGHTLY NEEDED FOR ANXIETY. 15 Tablet 07/08/20 22 Active Additional Information Patient not taking.Reported on 01/20/2025 Vit-Fe Fumarate-FA ( VITAMIN PO) Take 1 Tablet by mouth daily. Active Multivitamin-Eureka als (One-A-Day Womens Healthy Skin) Tablet Take 1 Tablet by mouth daily. Active Multiple Vitamins-Minerals (HAIR SKIN & NAILS PO) Take 1 Tablet by mouth daily. Active Coenzyme Q10 (CO Q 10 PO) Take 1 Tablet by mouth daily. [...] Date Resolved Date Acute appendicitis 09/02/2016 7 Encounters Date Type Department Care Team Description 03/12/2025 5:25 PM CDT - 03/12/2025 11:59 PM CDT Hospital Encounter [facility] [address] [place] [address] Luis Schaefer MD Discharge Disposition: Discharged to home or Selfcare 03/12/2025 Travel 02/24/2025 Transcribe Orders [facility] Central Scheduling [address] [place] [address] Luis Schaefer MD Chronic maxillary sinusitis (Primary Dx) 02/03/2025 9:28 AM CDT Anesthesia Event [facility] Periop [address] [place] [address] Harley Reyez APRN, Landon Daigle MD 02/03/2025 8:40 AM CDT - 02/03/2025 10:10 AM CDT Surgery [facility] Periop [address] [place] [address] Luis Schaefer MD LEFT PAROTIDECTOMY WITH FACIAL NERVE MONITORING 02/03/2025 6:30 AM CDT - 02/03/2025 12:20 PM CDT Hospital Encounter [facility] Preop/Pacu II [address] [place] [address] Luis Schaefer MD Discharge Disposition: Discharged to home or Selfcare 02/03/2025 Travel 01/24/2025 Travel 01/20/2025 Travel 01/09/2025 Transcribe Orders [facility] Preop/Pacu II [address] [place] [address] Luis Schaefer MD Preop testing (Primary Dx) from Last 3 Months Immunizations Immunization Administration Dates Next Due TD VACCINE 06/01/2021 Family History Medical History Relation Name Comments No Known Problems Father Diabetes Maternal Grandfather Diabetes Maternal Grandmother Crohn's Disease Mother Multiple Sclerosis Mother Breast Cancer Neg Hx Colon Cancer Neg Hx Ovarian Cancer Neg Hx Relation Name Status Comments Father Alive Maternal Grandfather Maternal Grandmother Mother Alive Social History Tobacco Use Types Packs/Day Years Used Date Smoking Tobacco: Every Day Cigarettes 0.5 15 Smokeless Tobacco: Never Tobacco Cessation:Ready to Q uit: Not Asked; Counseling Given: Not Answered Comments:Vaping Alcohol Use Standard Drinks/Week Comments No [...] Sign Reading Time Taken Comments Blood Pressure 102/56 02/03/2025 12:00 PM CDT Pulse 90 02/03/2025 12:00 PM CDT Temperature 36.4 C (97.5 F) 02/03/2025 12:00 PM CDT Respiratory Rate 16 02/03/2025 12:00 PM CDT Oxygen Saturation 98% 02/03/2025 12:00 PM CDT Inhaled Oxygen Concentration - - Weight 65.4 kg (144 lb 1.6 oz) 02/03/2025 6:49 A M CDT Height 165.1 cm (5' 5) 02/03/2025 6:49 AM CDT Body Mass Index 23.98 02/03/2025 6:49 AM CDT Plan of Treatment Health Maintenance Due Date Last Done Comments Hepatitis C Virus (HCV) Screening 1985 TdaP Immunization 1985 Human Papillomavirus (HPV) Immunization (1 - 3-dose series) 2001 Hepatitis B Immunization (1 of 3 - 19+ 3-dose series) 2005 Pneumococcal Immunization Co mbined (1 of 2 - PCV) 2005 Pap Smear 06/18/2021 06/18/2018 Cervical Cancer Screening (CCS) 06/18/2023 HPV/Cotest 06/18/2023 06/18/2018 SARS-COV-2 Immunization (1 - season) 2024 Influenza Immunization (#1) 2025 Respiratory Syncytial Virus (RSV) Immunization (Adult) (1 - 1-dose 75+ series) 2061 Meningococcal Immunization (ACWY) Aged Out No longer eligible based on patient's age to complete this topic Rotavirus Immunization Aged Out No lo nger eligible based on patient's age to complete this topic Procedures Procedure Name Priority Date/Time Associated Diagnosis Comments PATHOLOGY SURGICAL Routine 02/03/2025 10:18 AM CDT INTUBATION IN OR Routine 02/03/2025 9:45 AM CDT EXC PAROTD,TOTAL,SACRIF ICE 5TH NERV 02/03/2025 9:08 AM CDT MASS OF LEFT PAROTID GLAND Special Needs Allergy: PCN, Silk tape Hx: recent removal of all teeth 5' 5 148# EXC PAROTD,TOTAL,DISSEC T 5TH NERV 02/03/2025 9:08 AM CDT MASS OF LEFT PAROTID GLAND Special Needs Allergy: PCN, Silk tape Hx: recent removal of all teeth 5' 5 148# EXC PAROTD,LAT LOBE,DISSECT 5TH NERV 02/03/2025 9:08 AM CDT MASS OF LEFT PAROTID GLAND Special Needs Allergy: PCN, Silk tape Hx: recent removal of all teeth 5' 5 148# EXC PAROTD LESN,LATER LOBE 02/03/2025 9:08 AM CDT MASS OF LEFT PAROTID GLAND Special Needs Allergy: PCN, Silk tape Hx: recent removal of all teeth 5' 5 148# POCT URINE HCG () Routine 02/03/2025 6:49 AM CDT CBC WITH AUTO DIFFERENTIAL Routine 01/24/2025 12:12 PM CDT Preop testing POTASSIUM (K) Routine 01/24/2025 12:12 PM CDT Preop testing COMPLETE BLOOD COUNT (CBC) WITH DIFF Routine 01/24/2025 12:12 PM CDT Preop testing HUMAN PAPILLOMA VIRUS (HPV) Routine 06/18/2018 9:29 AM CDT Encounter for gynecological examination without abnormal finding Screening for malignant neoplasm of cervix Encounter for screening for human papillomavirus (HPV) PATHOLOGY CYTOLOGY VULCANIZING MACHINE OPERATOR Routine 06/18/2018 9:29 AM CDT Encounter for gynecological examination without abnormal finding Screening for malignant neoplasm of cervix Encounter for screening for human papillomavirus (HPV) from Last 3 Months or Most Recently Relevant to Health Maintenance Results * Pathology Surgical (02/03/2025 10:18 AM CDT) Case Report Surgical Pathology Report Case: [id number] Authorizing Provider: Luis Schaefer MD Collected: 02/03/2025 10:18 AM Ordering Location: [facility] Received: 02/03/2025 10:28 AM [facility] Main OR Pathologist: Imani Carter MD PhD Specimen: Parotid, LEFT PAROTID TUMOR 02/04/2025 1:15 PM CDT [facility] FINAL DIAGNOSIS Mass, left parotid gland, excision: - Benign pleomorphic adenoma 02/04/2025 1:15 PM CDT [facility] at 1315 CDT Comment Typical morphology of pleomorphic adenoma. 02/04/2025 1:15 PM CDT [facility] Pre-Operative Diagnosis MASS OF LEFT PAROTID GLAND 02/04/2025 1:15 PM CDT [facility] Gross Description A. LEFT PAROTID TUMOR Received in fixative and labeled with the patient identification and left parotid tumor is an oval shaped mass, measuring 2.9 x 2.5 x 1.6 cm. The surface is inked black and serially sectioned. The cut surfaces show white-shine firm mass lesion and seems having an intact capsule. It is representatively submitted in three casseetts. 02/04/2025 1:15 PM CDT [facility] Tissue PAROTID GLAND STRUCTURE / Unknown 02/03/2025 10:18 AM CDT 02/03/2025 10:28 AM CDT us Luis Schaefer MD PATHOLOGY/CYTOLOGY ORDERABLES Final Result [facility] [address] [place] [address] * Intubation in OR (02/03/2025 9:45 AM CDT) Narrative Harley Reyez APRN, CRNA - 02/03/2025 9:45 AM CDT Harley Reyez APRN, CRNA 02/03/2025 9:45 AM Intubation in OR Staffing Performed: resident/MEDICAL STAFF ASSISTANT Resident/MEDICAL STAFF ASSISTANT: Harley Reyez APRN, CRNA Performed by: Harley Reyez APRN, CRNA Authorized by: Harley Reyez APRN, CRNA Overall Difficulty: Easy Procedure Details Patient Position: Sniffing Ease of mask ventilation: easy Intubation Site: oral Tube Type: Standard Cuffed: yes Intubation Method: Direct laryngoscopy Cricoid Pressure: No Rapid Sequence: No Blade Used: Serrato Blade size: #2 Stylet Used: Yes Laryngeal View: Grade I Tube Size: 7 mmConfirmation: breath sounds and +EtCO2 Depth: 20 cm Atraumatic: Atraumatic intubation us Harley Reyez MECHANICAL ENGINEERING TECHNOLOGIST, MEDICAL STAFF ASSISTANT ANESTHESIA ORDERAB LES Final Result * POCT Urine HCG () (02/03/2025 6:49 AM CDT) Pathologist [facility] POC URINE Negative POC URINE CONTROL Dairy Husbandry Teacher Pass Urine 02/03/2025 6:49 AM CDT us Luis Schaefer MD POINT OF CARE TESTING (MANUAL ) Final Result * (ABNORMAL) CBC WITH AUTO DIFFERENTIAL (01/24/2025 12:12 PM CDT) [facility] WBC 11.50 4.00 - 12.00 10(3)/mcL 01/24/2025 1:01 PM CDT [facility] RBC 4.67 3.80 - 5.30 10(6)/mcL 01/24/2025 1:01 PM CDT [facility] HEMOGLOBIN (HGB) 13.5 12.0 - 15.8 g/dL 01/24/2025 1:01 PM CDT [facility] HEMATOCRIT (HCT) 41.0 36.0 - 47.0 % 01/24/2025 1:01 PM CDT [facility] MCV 87.8 82.0 - 96.0 fL 01/24/2025 1:01 PM CDT [facility] MCH 28.9 26.0 - 34.0 pg 01/24/2025 1:01 PM CDT [facility] MCHC 32.9 31.0 - 36.0 g/dL 01/24/2025 1:01 PM CDT [facility] PLATELET COUNT 497(H) 140 - 440 10(3)/mcL 01/24/2025 1:01 PM CDT [facility] RDW 13.6 11.8 - 15.5 % 01/24/2025 1:01 PM CDT [facility] MPV 10.3 9.7 - 12.4 fL 01/24/2025 1:01 PM CDT [facility] NEUTROPHILS 57.1 47.0 - 73.0 % 01/24/2025 1:01 PM CDT [facility] LYMPHOCYTES 28.3 18.0 - 42.0 % 01/24/2025 1:01 PM CDT [facility] MONOCYTES 6.5 4.0 - 12.0 % 01/24/2025 1:01 PM CDT [facility] EOSINOPHILS 7.7(H) 0.0 - 5.0 % 01/24/2025 1:01 PM T [facility] BASOPHILS 0.4 0.0 - 1.0 % 01/24/2025 1:01 PM CDT [facility] ABSOLUTE NEUTROPHILS 6.55 1.60 - 7.70 10(3)/[facility] 01/24/2025 1:01 PM [facility] ABSOLUTE LYMPHOCYTES 3.26(H) 1.30 - 3.20 10(3)/[facility] ABS[facility] MON[facility] 0.75 0.20 - 1.00 10(3)/[facility] 01/24/2025 1:01 PM [facility] ABSOLUTE EOSINOPHIL 0.89(H) 0.00 - 0.40 10(3)/[facility] 01/24/2025 1:01 PM [facility] ABSOLUTE BASOPHILS 0.05 0.00 - 0.10 10(3)/[facility] 01/24/2025 1:01 PM [facility] NRBC PER 100 WBC 0 01/25/20 1:01 PM T [facility] Blood Venipuncture / Unknown 01/24/2025 12:12 PM CDT 01/24/2025 12:57 PM CDT us Luis Schaefer MD HEMATOLOGY ORDERABLES Final R esult Performing Organization Address City/[facility]/ZIP Co de Phone Number [facility] [address] [place] [address] * POTASSIUM (K) (01/24/2025 12:12 PM CDT) POTASSIUM 4.6 3.5 - 5.1 mmol/L 01/24/2025 3:37 PM CDT [facility] Blood Venipuncture / Unknown 01/24/2025 12:12 PM CDT 01/24/2025 12:57 PM CDT Luis Schaefer MD CHEMISTRY ORDERABLES Final Re sult Performing Organization Address [facility] Co de Phone Number [facility] [address] [place] [address] * PATHOLOGY CYTOLOGY VULCANIZING MACHINE OPERATOR (06/18/2018 9:29 AM CDT) SPECIMEN ADEQUACY Satisfactory for evaluation. Endocervical cells present. 07/01/2018 3:19 PM CDT [facility] DESCRIPTIVE DIAGNOSIS Negative for intraepithelial lesions. No dysplastic cells present. 07/01/2018 3:19 PM CDT [facility] at 1519 CDT AUTOMATED EXAMINATION Analysis of this sample has been assisted by an automated imaging and review system ([employer] / [employer] Imaging System, [employer], [place], [place]). This case is further evaluated and finalized by a machine castings plasterer and/or pathologist. 07/01/2018 3:19 PM CDT [facility] DISCLAIMER The PAP smear is a [...] recommended every three years for women 21-29, Co-Testing, a PAP test in conjunction with an HPV (Human Papillomavirus) test for women ages 30-65, and no PAP or HPV testing for women under the age of 21 or older than 65 unless clinically indicated. 07/01/2018 3:19 PM CDT [facility] Case Report Gynecologic Cytology Report Case: [id number] Authorizing Provider: Tiffanie Amaya MD Collected: 06/18/2018 09:29 AM Ordering Location: [facility] DRUPAL PROGRAMMER - YONI Received: 06/18/2018 09:29 AM ANITA First Screen: Renee Javier Specimen: TP Screen, CERVIX/ENDOCERVIX 07/01/2018 3:19 PM CDT [facility] HPV Reflex if ASCUS? No 07/01/2018 3:19 PM CDT [facility] Specimen of unknown material (specimen) CERVIX UTERI STRUCTURE / Unknown Non-Phlebotomy Collection / Unknown 06/18/2018 9:29 AM CDT 06/18/2018 9:29 AM CDT us Tiffanie Plata MD PATHOLOGY/CYTOLO GY ORDERABLES Final Result [facility] [address] [facility] [place] [address], * HUMAN PAPILLOMA VIRUS (HPV) (06/18/2018 9:29 AM CDT) HPV OTHER HIGH RISK TYPES, PCR NEGATIVE NEGATIVE 06/23/2018 7:29 AM CDT [facility] Comment: The following Other High Risk [...] 16 NEGATIVE NEGATIVE 06/23/2018 7:29 AM CDT [facility] Comment: A negative high-risk HPV result [...] 18 NEGATIVE NEGATIVE 06/23/2018 7:29 AM CDT [facility] Comment: A negative high-risk HPV result [...] AM CDT 06/18/2018 9:29 AM CDT Narrative [facility] - 06/23/2018 7:29 AM CDT Performed by Real-Time Polymerase Chain Reaction (PCR) on the Devon Jeremias 4800. This assay has been validated for use with post-aliquot samples from the [employer] T5000 processor. Tiffanie Plata MD LAB SEND OUTS Final Result Performing Organization Address City/State/[facility] de Phone Number [facility] [address] [place] [address], from Last 3 Months or Most Recently Relevant to Health Maintenance Insurance * Guarantor: Billie Deshpande Account Type Relation to Patient Date of Phone Billing Address Personal/Family Self 1985 [address] [place] [address] MEDICAID AETNA [facility] * Guarantor: Gloria Oliver Account Type Relation to Patient Date of Phone Billing Address Personal/Family Self 12/26/2005 [address] [place] [address] Advance Directives * Full Code (Latest Code Status on File) Date Activated Date Inactivated Comments 09/02/2016 10:39 AM 09/02/2016 10:41 PM CPR-Full Treatment: FULL ARREST: Attempt Resuscitation/CPR wit intubation and mechanical ventilation. PRE-ARREST: Use entire range of life support measures to stabilize the patient. Care Teams Art Sales Consultant Relationship Specialty Start Date End Date Ari Heck MD [address] [place] [address] PCP - General Family Medicine 02/03/25 Heraclio Bhatia MD [address] [address] General Surgery 09/14/16
--- OUTSIDE RECORDS SUMMARY | 2025-03-22 17:45 | XMS_ITS | Encounter Summary ---
Author Organization [facility] Address [address] [place] [address] Phone Care Team Providers Care Gift Shop Manager Name Role Phone Heraclio Bhatia MD Unavailable [phone] David Ching MD Primary Care Provider [phone] Ari Heck MD Primary Care Provider [phone] Reason for Visit * Reason Comments Medication Refill Encounter Details Date Type Department Care Team (Late st Contact Info) Description 07/06/2022 Refill [facility] - [place] [address] [place], [place] [id number] Harley Capellan, PIANO SOUNDING BOARD MATCHER, CHEMICAL RESEARCH TECHNICIAN [address] [place] [address] Medication Refill Social History Tobacco Use Types [...] Dept 03/17/22 Office Visit Harley Capellan APRN, CHEMICAL RESEARCH TECHNICIAN [facility] Showing recent visits within past 365 days and meeting all other requirements Today's Visits Date Type Provider Dept 07/07/22 Appointment Kina Rodriguez, PAC [facility] Showing today's visits and meeting all other [...] documented as of this encounter Care Teams Gift Shop Manager Relationship Specialty Start Date End Date David Ching MD [address] [place] [address] PCP - General Family Medicine 06/18/18 02/02/25 Ari Heck MD [address] [place] [address] PCP - General Family Medicine 02/03/25 Heraclio Bhatia MD [address] [place] [address] General Surgery 09/14/16 documented as of this encounter
[2025-03-22 17:49] VITALS: BP 127/67; PULSE 69; RESP 16; TEMP 36.7; O2SAT 98
--- OUTSIDE RECORDS SUMMARY | 2025-03-22 19:13 | XMS_ITS | Encounter Summary ---
Author Organization [facility] Address [address] [place] [address] Phone Care Team Providers Care Territory Account Manager Name Role Phone Heraclio Bhatia MD Unavailable [phone] David Ching MD Primary Care Provider [phone] Ari Heck MD Primary Care Provider Reason for Visit * Reason Comments Medication Refill Encounter Details Date Type Department Care Team (Late st Contact Info) Description 03/12/2022 Refill [facility] - [place] [address] [place], [place] [id number] David Ching MD [address] [place] [address] Medication Refill Social History Tobacco Use Types [...] Notes * Telephone Encounter - Harley Capellan, OCULAR CARE TECHNOLOGIST, DIRECTOR EMPLOYEE COMMUNICATIONS - 03/14/2022 3:30 PM CDT Will wait [...] AM CDT Needs apt ok to see night assistant * Telephone Encounter - Chandra Cedillo RN [...] Dept 05/12/21 Office Visit David Ching MD [facility] Showing recent visits within past 365 days [...] documented as of this encounter Care Teams Territory Account Manager Relationship Specialty Start Date End Date David Ching MD [address] [place] [address] PCP - General Family Medicine 06/18/18 02/02/25 Ari Heck MD [address] [place] [address] PCP - General Family Medicine 02/03/25 Heraclio Bhatia MD [address] [address] General Surgery 09/14/16 documented as of this encounter
--- OUTSIDE RECORDS SUMMARY | 2025-03-22 19:13 | XMS_ITS | Encounter Summary ---
Author Organization [facility] Address [address] [place] [address] Phone Care Team Providers Care Health Promotion Manager Name Role Phone Heraclio Bhatia MD Unavailable [phone] David Ching MD Primary Care Provider [phone] Ari Heck MD Primary Care Provider [phone] Reason for Visit * Reason Onset Date Comments Medication Refill 04/28/2020 Fioricet Encounter Details Date Type Department Care Team (Late st Contact Info) Description 04/26/2020 Refill [facility] - [place] [address] [place], [place] [id number] David Ching MD [address] [place] [address] Medication Refill (Fioricet) Social History Tobacco Use [...] Total Score: 0 11/02/19 19 10:12 AM FLUME TENDER documented as of this encounter Care Teams Health Promotion Manager Relationship Specialty Start Date End Date David Ching MD [address] [place] [address] PCP - General Family Medicine 06/18/18 02/02/25 Ari Heck MD [address] [place] [address] PCP - General Family Medicine 02/03/25 Heraclio Bhatia MD [address] [address] General Surgery 09/14/16 documented as of this encounter
--- OUTSIDE RECORDS SUMMARY | 2025-03-22 19:13 | XMS_ITS | Clinical Summary ---
Author Organization [facility] Address [address] [place] [address] Phone Care Team Providers Care Chipper Machine Operator Name Role Phone Heraclio Bhatia MD Unavailable [phone] Ari Heck MD Primary Care Provider [phone] Allergies Active Allergy Reactions Criticality Noted Date [...] Take 1 Tablet by mouth daily. Active Multivitamin-Pratt als (One-A-Day Womens Healthy Skin) Tablet Take [...] - 03/12/2025 11:59 PM CDT Hospital Encounter [facility] [address] [place] [address] Luis Schaefer MD Discharge Disposition: Discharged to home or Selfcare 03/12/2025 Travel 02/24/2025 Transcribe Orders [facility] Central Scheduling [address] [place] [address] Luis Schaefer MD Chronic maxillary sinusitis (Primary Dx) 02/03/2025 9:28 AM CDT Anesthesia Event [facility] Periop [address] [place] [address] Harley Reyez APRN, Landon Daigle MD 02/03/2025 8:40 AM CDT - 02/03/2025 10:10 AM CDT Surgery [facility] Periop [address] [place] [address] Luis Schaefer MD LEFT PAROTIDECTOMY WITH FACIAL NERVE MONITORING 02/03/2025 6:30 AM CDT - 02/03/2025 12:20 PM CDT Hospital Encounter [facility] Preop/Pacu II [address] [place] [address] Luis Schaefer MD Discharge Disposition: Discharged to home or Selfcare 02/03/2025 Travel 01/24/2025 Travel 01/20/2025 Travel 01/09/2025 Transcribe Orders [facility] Preop/Pacu II [address] [place] [address] Luis Schaefer MD Preop testing (Primary Dx) [...] screening for human papillomavirus (HPV) PATHOLOGY CYTOLOGY PULVERIZER FEEDER Routine 06/18/2018 9:29 AM CDT Encounter for gynecological examination without abnormal finding Screening for malignant neoplasm of cervix Encounter for screening for human papillomavirus (HPV) from Last 3 Months or Most Recently Relevant to Health Maintenance Results * Pathology Surgical (02/03/2025 10:18 AM CDT) Case Report Surgical Pathology Report Case: [id number] Authorizing Provider: Luis Schaefer MD Collected: 02/03/2025 10:18 AM Ordering Location: [facility] Received: 02/03/2025 10:28 AM [facility] Main OR Pathologist: Imani Carter MD PhD Specimen: Parotid, LEFT PAROTID TUMOR 02/04/2025 1:15 PM CDT [facility] FINAL DIAGNOSIS Mass, left parotid gland, excision: - Benign pleomorphic adenoma 02/04/2025 1:15 PM CDT [facility] at 1315 CDT Comment Typical morphology of pleomorphic adenoma. 02/04/2025 1:15 PM CDT [facility] Pre-Operative Diagnosis MASS OF LEFT PAROTID GLAND 02/04/2025 1:15 PM CDT [facility] Gross Description A. LEFT PAROTID [...] in three casseetts. 02/04/2025 1:15 PM CDT [facility] Tissue PAROTID GLAND STRUCTURE / Unknown 02/03/2025 10:18 AM CDT 02/03/2025 10:28 AM CDT us Luis Schaefer MD PATHOLOGY/CYTOLOGY ORDERABLES Final Result [facility] [address] [place] [address] * Intubation in OR (02/03/2025 9:45 AM CDT) Narrative Harley Reyez APRN, CRNA - 02/03/2025 9:45 AM CDT Harley Reyez APRN, CRNA 02/03/2025 9:45 AM Intubation in OR Staffing Performed: resident/FASHION JOURNALIST Resident/FASHION JOURNALIST: Harley Reyez APRN, CRNA Performed by: Harley [...] cm Atraumatic: Atraumatic intubation us Harley Reyez AGRICULTURAL LABOR CAMP MANAGER, FASHION JOURNALIST ANESTHESIA ORDERAB LES Final Result * POCT Urine HCG () (02/03/2025 6:49 AM CDT) Pathologist [facility] POC URINE Negative POC URINE CONTROL [facility] Urine 02/03/2025 6:49 AM CDT us Luis Schaefer MD POINT OF CARE TESTING (MANUAL ) Final Result * (ABNORMAL) CBC WITH AUTO DIFFERENTIAL (01/24/2025 12:12 PM CDT) [facility] WBC 11.50 4.00 - 12.00 10(3)/mcL 01/24/2025 1:01 PM CDT [facility] RBC 4.67 3.80 - 5.30 10(6)/mcL 01/24/2025 1:01 PM CDT [facility] HEMOGLOBIN (HGB) 13.5 12.0 - 15.8 g/dL 01/24/2025 1:01 PM CDT [facility] HEMATOCRIT (HCT) 41.0 36.0 - 47.0 % 01/24/2025 1:01 PM CDT [facility] MCV 87.8 82.0 - 96.0 fL 01/24/2025 1:01 PM CDT [facility] MCH 28.9 26.0 - 34.0 pg 01/24/2025 1:01 PM CDT [facility] MCHC 32.9 31.0 - 36.0 g/dL 01/24/2025 1:01 PM CDT [facility] PLATELET COUNT 497(H) 140 - 440 10(3)/mcL 01/24/2025 1:01 PM CDT [facility] RDW 13.6 11.8 - 15.5 % 01/24/2025 1:01 PM CDT [facility] MPV 10.3 9.7 - 12.4 fL 01/24/2025 1:01 PM CDT [facility] NEUTROPHILS 57.1 47.0 - 73.0 % 01/24/2025 1:01 PM CDT [facility] LYMPHOCYTES 28.3 18.0 - 42.0 % 01/24/2025 1:01 PM CDT [facility] MONOCYTES 6.5 4.0 - 12.0 % 01/24/2025 1:01 PM CDT [facility] EOSINOPHILS 7.7(H) 0.0 - 5.0 % 01/24/2025 1:01 PM T [facility] BASOPHILS 0.4 0.0 - 1.0 % 01/24/2025 1:01 PM CDT [facility] ABSOLUTE NEUTROPHILS 6.55 1.60 - 7.70 10(3)/[facility] 01/24/2025 1:01 PM [facility] ABSOLUTE LYMPHOCYTES 3.26(H) 1.30 - 3.20 10(3)/[facility] 01/24/2025 1:01 PM [facility] ABSOLUTE MONOCYTES 0.75 0.20 - 1.00 10(3)/[facility] 01/24/2025 1:01 PM [facility] ABSOLUTE EOSINOPHIL 0.89(H) 0.00 - 0.40 10(3)/[facility] 01/24/2025 1:01 PM [facility] ABSOLUTE BASOPHILS 0.05 0.00 - 0.10 10(3)/[facility] 01/24/2025 1:01 PM [facility] NRBC PER 100 WBC 0 01/25/20 1:01 PM T [facility] Blood Venipuncture / Unknown 01/24/2025 12:12 PM CDT 01/24/2025 12:57 PM CDT us Luis Schaefer MD HEMATOLOGY ORDERABLES Final R esult Performing Organization Address City/[facility]/ZIP Co de Phone Number [facility] [address] [place] [address] * POTASSIUM (K) (01/24/2025 12:12 PM CDT) POTASSIUM 4.6 3.5 - 5.1 mmol/L 01/24/2025 3:37 PM CDT [facility] Blood Venipuncture / Unknown 01/24/2025 12:12 PM CDT 01/24/2025 12:57 PM CDT Luis Schaefer MD CHEMISTRY ORDERABLES Final Re sult Performing Organization Address [facility] Co de Phone Number [facility] [address] [place] [address] * PATHOLOGY CYTOLOGY PULVERIZER FEEDER (06/18/2018 9:29 AM CDT) SPECIMEN ADEQUACY Satisfactory for evaluation. Endocervical cells present. 07/01/2018 3:19 PM CDT [facility] DESCRIPTIVE DIAGNOSIS Negative for intraepithelial lesions. No dysplastic cells present. 07/01/2018 3:19 PM CDT [facility] at 1519 CDT AUTOMATED EXAMINATION Analysis of this sample has been assisted by an automated imaging and review system ([employer] System, [employer], [place], [place]). This case is further evaluated and finalized by a vp integrity and/or pathologist. 07/01/2018 3:19 PM CDT [facility] DISCLAIMER The PAP smear is a screening [...] unless clinically indicated. 07/01/2018 3:19 PM CDT [facility] Case Report Gynecologic Cytology Report Case: [id number] Authorizing Provider: Tiffanie Amaya MD Collected: 06/18/2018 09:29 AM Ordering Location: [facility] Received: 06/18/2018 09:29 AM ANITA First Screen: Renee Javier Specimen: TP Screen, CERVIX/ENDOCERVIX 07/01/2018 3:19 PM CDT [facility] HPV Reflex if ASCUS? No 07/01/2018 3:19 PM CDT [facility] Specimen of unknown material (specimen) CERVIX UTERI STRUCTURE / Unknown Non-Phlebotomy Collection / Unknown 06/18/2018 9:29 AM CDT 06/18/2018 9:29 AM CDT us Tiffanie Plata MD PATHOLOGY/CYTOLO GY ORDERABLES Final Result [facility] [address] [place] [address], * HUMAN PAPILLOMA VIRUS (HPV) (06/18/2018 9:29 AM CDT) HPV OTHER HIGH RISK TYPES, PCR NEGATIVE NEGATIVE 06/23/2018 7:29 AM CDT [facility] Comment: The following Other High Risk types [...] 16 NEGATIVE NEGATIVE 06/23/2018 7:29 AM CDT [facility] Comment: A negative high-risk HPV result does [...] 18 NEGATIVE NEGATIVE 06/23/2018 7:29 AM CDT [facility] Comment: A negative high-risk HPV result does [...] AM CDT 06/18/2018 9:29 AM CDT Narrative [facility] - 06/23/2018 7:29 AM CDT Performed by Real-Time Polymerase Chain Reaction (PCR) on the [employer] 4800. This assay has been validated for use with post-aliquot samples from the [employer] processor. Tiffanie Plata MD LAB SEND OUTS Final Result Performing Organization Address City/State/[facility] de Phone Number [facility] [address] [place] [address], from Last 3 Months or Most Recently Relevant to Health Maintenance Insurance * Guarantor: Billie Deshpande Account Type Relation to Patient Date of Phone Billing Address Personal/Family Self 1985 [address] [place] [address] MEDICAID [facility] [facility] * Guarantor: Gloria Oliver Account Type Relation to Patient Date of Phone Billing Address Personal/Family Self 12/26/2005 [address] [place] [address] Advance Directives * Full Code (Latest Code Status on File) Date Activated Date Inactivated Comments 09/02/2016 10:39 AM 09/02/2016 10:41 PM CPR-Full Treatment: FULL ARREST: Attempt Resuscitation/CPR wit intubation and mechanical ventilation. PRE-ARREST: Use entire range of life support measures to stabilize the patient. Care Teams Chipper Machine Operator Relationship Specialty Start Date End Date Ari Heck MD [address] [place] [address] PCP - General Family Medicine 02/03/25 Heraclio Bhatia MD [address] [address] General Surgery 09/14/16
--- OUTSIDE RECORDS SUMMARY | 2025-03-22 19:14 | XMS_ITS | Encounter Summary ---
Author Organization [facility] Address [address] [place] [address] Phone Care Team Providers Care Tax Map Technician Name Role Phone Heraclio Bhatia MD Unavailable [phone] David Ching MD Primary Care Provider [phone] Ari Heck MD Primary Care Provider [phone] Reason for Visit * Reason Comments Medication Refill Encounter Details Date Type Department Care Team (Late st Contact Info) Description 07/06/2022 Refill [facility] - [place] [address] [place], [place] [id number] Harley Capellan, GRADER PATROL, BENCH ASSEMBLER OPERATOR [address] [place] [address] Medication Refill Social History Tobacco Use Types [...] Dept 03/17/22 Office Visit Harley Capellan APRN, BENCH ASSEMBLER OPERATOR [facility] Showing recent visits within past 365 days and meeting all other requirements Today's Visits Date Type Provider Dept 07/07/22 Appointment Kina Rodriguez, PAC [facility] Showing today's visits and meeting all other [...] documented as of this encounter Care Teams Tax Map Technician Relationship Specialty Start Date End Date David Ching MD [address] [place] [address] PCP - General Family Medicine 06/18/18 02/02/25 Ari Heck MD [address] [place] [address] PCP - General Family Medicine 02/03/25 Heraclio Bhatia MD [address] [place] [address] General Surgery 09/14/16 documented as of this encounter
--- OUTSIDE RECORDS SUMMARY | 2025-03-22 19:14 | XMS_ITS | Encounter Summary ---
Author Organization [facility] Address [address] [place] [address] Phone Care Team Providers Care Tile Machine Operator Name Role Phone Heraclio Bhatia MD Unavailable [phone] David Ching MD Primary Care Provider [phone] Ari Heck MD Primary Care Provider [phone] Encounter Details Date Type Department Care Team (Late st Contact Info) Description 04/11/2022 Telephone [facility] - Family Medicine - [place] [address] [place], [place] [phone] David Ching MD [address] [place], [place] [id number] Social History Tobacco Use Types Packs/Day Years [...] reports she had a recent visit with OTOLARYNGOLOGY NURSE and was offered RX for Hydroxyzine but declined at that time as she wanted to do some research on medication first. Patient would like to proceeded with taking this medication for anxiety. Preferred pharmacy is [facility] in [place]. Provider please advise. documented in this encounter Plan of Treatment Not on file documented as of this encounter Visit Diagnoses Diagnosis Anxiety state- Primary Anxiety state, unspecified documented in this encounter Additional Health Concerns Assessment Noted Time PHQ-9 Depression Total Score: 12 022 11:00 AM CDT documented as of this encounter Care Teams Tile Machine Operator Relationship Specialty Start Date End Date David Ching MD [address] [place] [address] PCP - General Family Medicine 06/18/18 02/02/25 Ari Heck MD [address] [place] [address] PCP - General Family Medicine 02/03/25 Heraclio Bhatia MD [address] [address] General Surgery 09/14/16 documented as of this encounter
--- NOTE | 2025-03-22 20:05 | ED.ANIMALBIT ---
HPI - Animal Bite General Chief Complaint: Animal Bite Stated Complaint: cat bite Time Seen by Provider: 03/22/25 19:03 History of Present Illness HPI narrative: 39-year-old otherwise healthy female presenting to the ER for evaluation of a cat bite and scratch to her right upper extremity that occurred earlier this afternoon while she was trying to remove some kidneys from under her porch. The CT and up-biting her right forearm laterally and scratched her dorsal hand. No significant active bleeding. Her tetanus is up today. States that she has a childhood history of allergies to amoxicillin but has taken Augmentin in adulthood without any difficulties. No fever, chills, bleeding. No restricted range of motion. Some minor swelling and redness at the puncture site. Related Data Allergies Allergy/AdvReac Type Severity Reaction Status Date / Time Penicillins AdvReac Mild Rash Verified 11/24/23 11:36 Course Vital Signs Vital signs: Vital Signs Temperature 36.7 C 03/22/25 17:49 Pulse Rate 69 03/22/25 17:49 Respiratory Rate 16 03/22/25 17:49 Blood Pressure 127/67 03/22/25 17:49 Pulse Oximetry 98 03/22/25 17:49 Oxygen Delivery Room Air 03/22/25 17:49 Temperature 36.7 C 03/22/25 17:49 Pulse Rate 69 03/22/25 17:49 Respiratory Rate 16 03/22/25 17:49 Blood Pressure 127/67 03/22/25 17:49 Pulse Oximetry 98 03/22/25 17:49 Oxygen Delivery Room Air 03/22/25 17:49 MDM - Animal Bite MDM Narrative Medical decision making narrative: 39-year-old otherwise healthy female presenting to the ER for evaluation of a cat bite and scratch to her right upper extremity that occurred earlier this afternoon while she was trying to remove some kidneys from under her porch. The CT and up-biting her right forearm laterally and scratched her dorsal hand. No significant active bleeding. Her tetanus is up today. States that she has a childhood history of allergies to amoxicillin but has taken Augmentin in adulthood without any difficulties. No fever, chills, bleeding. No restricted range of motion. Some minor swelling and redness at the puncture site. Examination shows 2 small puncture wounds to the lateral ulnar aspect of the right forearm. No active bleeding, minor overlying swelling but no induration or abscess formation. No bleeding or purulent drainage. Small superficial abrasion/scratch to the dorsum of the right hand. No active bleeding. Hemodynamically stable and afebrile. Given a course of Augmentin and topical antibiotics. Sent home with a prescription and return precautions with PCP follow-up instructions. Medical Records Attestation: I reviewed the patient's medical records. Discharge Plan Discharge Clinical Impression: Cat bite Patient Disposition: Home Condition: Stable Instructions: Antibiotic Form, Animal Bite (ED) Additional Instructions: We will treat her cat bite with 7 days of antibiotics. Keep the area clean and you can covered with bandages. Use topical antibiotic such as Neosporin which you can get [id number]. We will send you a prescription to your pharmacy. Take up to 600 mg of ibuprofen every 8 hours for pain and swelling control for the 1st few days. Return if you start developing streaking redness up the arm, worsening pain and swelling, fevers or any other emergent concerns. Patient Language: Andorran Prescriptions: New amoxicillin-pot clavulanate 875-125 mg tablet 1 tablet PO Q12H 7 Days Qty: 14 0RF No Action cephalexin 500 mg capsule 500 mg PO BID 10 Days Qty: 20 0RF Follow-up/Referrals: Umang,MD Ari [Primary Care Provider] - Time of Disposition: 19:49
== END 2025-03-22 20:07 | disposition home or self-care (01) ==
PROVIDERS: Emergency Provider Student in an Organized Health Care Education/Training Program; PCP Family Medicine
DX: S51.851A Open bite of right forearm, initial encounter (principal); W55.01XA Bitten by cat, initial encounter
CPT/HCPCS: 99283; A9270